=== PATIENT | male | born 1980 | race Caucasian/White ===

== ENCOUNTER 2018-02-15 08:21 | Emergency (ER) | payer BC, SELFPAY ==
[2018-02-15 08:25] VITALS: BP 134/75; PULSE 83; RESP 16; TEMP 36.1; O2SAT 97
--- NOTE | 2018-02-15 08:41 | ED.GENADUL_ITS ---
Discharge Plan Disposition Patient Disposition: HOME Condition: Stable Discharge Details Chief Complaint: Orthopedic Clinical Impression: Contusion of left knee, Effusion of left knee Primary Care Provider: Micheline Narayanan V ED Provider: Adwoa Vides Home Meds and New Rx's Prescriptions: No Action ibuprofen 200 MG capsule 200 mg PO PRN PRNRF: 0 Discharge Instructions Instructions: Contusion in Adults (ED) Additional Instructions: Rest, ice and elevate left lower extremity is much as possible. Alternate Tylenol and Motrin as needed and directed for pain. Use your crutches at home to help with ambulation of the next few days. Follow-up with orthopedics if no improvement in the next 1-2 weeks. Return immediately to the emergency department any worsening or new concerning symptoms. Stand Alone Forms: Work Release Discharge Data Discharge Date/Time-TO BE ENTERED AT DEPARTURE: 02/15/18 10:27 Discharge Physician: Adwoa Vides Medical Decision Making 37-year-old male presents with left lateral knee pain after fall directly onto ice this morning. Has not taken anything for pain. Tenderness to palpation and with varus stress left lateral knee. No ligamentous instability. Negative anterior posterior drawer test, negative Angy's test bilaterally. We will give a dose of ibuprofen and send for left knee x-ray. 1010 --x-ray notes mild suprapatellar joint effusion and lucencies through the superior pole of the patella which may represent acute fracture or unhealed prior fracture. Images were reviewed with orthopedics Dr. Haines. Unlikely this is an acute fracture. Patient is able to straight leg raise with very minimal pain anterior knee. He also has very minimal tenderness to palpation of the anterior patella which would be unlikely for an acute fracture. Recommends Brenden wrap and crutches to help with weightbearing over the next few days. Patient states he has crutches at home. Pt has seen Dr. Puente for previous R knee surgery -instructed to follow-up with Dr. Puente if pain does not improve or worsens over the next 1-2 weeks. HPI General Mode of arrival: ambulatory . Date/Time Provider Initiated Documentation: 02/15/18 08:39 . Limitations to Documentation: no limitations . Information obtained by: patient . HPI Narrative: Patient is a 37-year-old male who presents with left knee pain after slipping and falling on ice with direct blunt injury to knee this morning. Patient has not taken anything for pain. Patient denies any other injuries. Patient has been able to ambulate but with pain in the L lateral knee. Related Data Home Medications Medication Instructions Recorded Confirmed ibuprofen 200 mg PO PRN PRN 12/06/12 02/15/18 Allergies Allergy/AdvReac Type Severity Reaction Status Date / Time No Known Allergies Allergy Unverified 02/15/18 08:30 General Stated Complaint: Orthopedic MAYCOL: 4 Review of Systems Review of Systems All systems reviewed & are unremarkable except as noted in HPI and below Constitutional Reports as per HPI, Denies chills and Denies fever(s) Eyes Denies blurry vision ENT Denies dizziness, Denies sore throat and Denies throat swelling Cardiovascular Denies chest pain and Denies dyspnea Respiratory Denies dyspnea Gastrointestinal Denies abdominal pain, Denies diarrhea and Denies vomiting Genitourinary Denies hematuria and Denies dysuria Musculoskeletal Denies back pain and Denies numbness Integumentary/Breasts Denies lesions and Denies rash Neurologic Denies dizziness and Denies numbness Allergic/Immunologic Denies throat swelling PFSH S/P medial meniscus repair of right knee (Acute) Social History Smoking/Tobacco Use Status: Never alcohol intake: current alcohol intake frequency: holidays/special occasions only substance use type: does not use Surgical History S/P medial meniscus repair of right knee (Acute) Social History Smoking/Tobacco Use Status: Never alcohol intake: current alcohol intake frequency: holidays/special occasions only substance use type: does not use Exam Const General: cooperative, healthy appearing and no acute distress HENMT Head: normal to inspection Mouth: oral mucosae normal Eyes General: appearance normal, both eyes and all related structures Neck Neck: normal visual inspection Resp Effort & Inspection: normal respiratory effort and able to speak in complete sentences Cardio Rate: regular rate Skin General skin exam: no rashes or lesions noted Neuro General: alert, awake and oriented x3 Motor: muscle tone normal throughout Extrem Left lower extremity: hip/thigh Details: normal ROM; no tenderness, knee (Pain in left lateral knee with range of motion. Some pain with varus stress. No pain or laxity with valgus stress. Negative anterior and posterior drawer test. No obvious ligamentous instability/laxity. ) Details: tenderness Location : of the lateral joint line and Angy's Test Details: negative medially and laterally; no swelling, no abrasions, no lacerations, no ecchymosis and no deformity and foot Details: vascular exam Details: dorsalis pedis pulse present and posterior tibial pulse present Psych Appearance: grossly normal Affect: normal affect Course Vital Signs Temperature 97.0 F L 02/15/18 08:25 Pulse 83 02/15/18 08:25 Respiratory Rate 16 02/15/18 08:25 Blood Pressure 134/75 02/15/18 08:25 Pulse Oximetry 97 02/15/18 08:25 Temperature 97.0 F L 02/15/18 08:25 Temperature Source Skin 02/15/18 08:25 Pulse 83 02/15/18 08:25 Respiratory Rate 16 02/15/18 08:25 Respiratory Effort 02/15/18 08:25 Blood Pressure 134/75 02/15/18 08:25 Blood Pressure Position Sitting 02/15/18 08:25 Pulse Oximetry 97 02/15/18 08:25 Oxygen Delivery Method Room Air 02/15/18 08:25 Oxygen Flow Rate 0 02/15/18 08:25 Pain Level 4 02/15/18 08:25
--- NOTE | 2018-02-15 08:50 | DI.RAD_ITS ---
SYMPTOM/DIAGNOSIS: FELL, PAIN, ? FX LEFT KNEE: Four views. No definite acute fracture or dislocation is seen. There is a question of linear lucencies in the patella on the frontal view of the left knee. This may reflect an acute or old fracture or overlying artifact. Please correlate with the patient's site of pain. There does appear to be a small suprapatellar joint effusion. IMPRESSION: 1. Small joint effusion. 2. Lucency seen overlying the superior patella on the frontal view of the knee. These may be artifactual versus acute or old fracture. Follow up as clinically appropriate.
[2018-02-15] MEDS: Ibuprofen 600 MG TAB PO (09:04)
--- NOTE | 2018-02-15 09:53 | DI.VRAD_ITS ---
EXAM: XR Left Knee, 4 or more Views EXAM DATE/TIME: 02/15/2018 8:51 AM CLINICAL HISTORY: 37 years old, male; Signs and symptoms; Other: S/P fall onto lt knee , R/O acute fracture TECHNIQUE: XR Left knee 4 or more views. COMPARISON: No relevant prior studies available. FINDINGS: Bones/joints: Mild suprapatellar joint effusion. Lucencies through the superior pole of patella on the frontal views may represent acute fracture or unhealed prior fracture. Soft tissues: Normal. IMPRESSION: 1. Mild suprapatellar joint effusion. 2. Lucencies through the superior pole of patella on the frontal views may represent acute fracture or unhealed prior fracture. Dictated and Authenticated by: Sofie Nolasco MD. Ordering:ANASTASIYA HENRIQUEZ MD
== END 2018-02-15 10:27 | disposition home or self-care (01) ==
LOC: ER 10:31
PROVIDERS: Emergency Provider Physician Assistant; PCP Family Medicine
DX: S80.02XA Contusion of left knee, initial encounter (principal); M25.462 Effusion, left knee; W00.0XXA Fall on same level due to ice and snow, initial encounter
CPT/HCPCS: 99283; 73564

== ENCOUNTER 2018-04-01 20:41 | Emergency (ER) | payer BC, SELFPAY ==
[2018-04-01 20:46] VITALS: BP 153/95; PULSE 96; RESP 16; TEMP 36.3; O2SAT 96
--- NOTE | 2018-04-01 21:25 | ED.GENADUL_ITS ---
Discharge Plan Disposition Patient Disposition: HOME Condition: Stable Discharge Details Chief Complaint: Orthopedic Clinical Impression: Sprain of medial collateral ligament of right knee Primary Care Provider: Micheline Narayanan V ED Provider: Mumtaz Dewey Home Meds and New Rx's Prescriptions: Continued ibuprofen 200 MG capsule 200 mg PO PRN PRNRF: 0 Discharge Instructions Instructions: Knee Sprain (ED) Additional Instructions: Continue to ice and rest your knee as much as possible. You may perform activity as tolerated by discomfort and continue to use Brenden wrap or hinged knee brace for support. For pain control is recommended that you take 600 mg of ibuprofen along with 650 -1,000 mg of Tylenol every 6 hours as needed for discomfort. Follow-up with orthopedist for reassessment in the next couple weeks. Feel free to return the emergency department for new or worsening symptoms Stand Alone Forms: Work Release Referrals: Jim Puente [ NON-[facility] STAFF PHYSICIAN] - Medical Decision Making Patient presenting to the emergency department for chief complaint of right knee pain. Patient states that he had a slip and fall with his knee bending inward and feeling discomfort to the inside of his knee since Friday. Patient states previous injury to his right knee that required surgery. Patient has intermittently been taking aspirin for discomfort and attempting to wear his hinged knee brace but due to swelling has not been able to fully get it on. Patient denies any other injury or trauma. Physical exam does show a mildly diffuse swollen right knee without obvious effusion, medial ligament laxity and pain with stress and painful extension of the knee mainly on the medial side. Patient can walk more than 4 steps and fully weight-bear, but does state some feeling that knee is going to give out . He has no bony tenderness. Given this I do feel that patient has high risk of medial ligament sprain but I doubt any fracture or dislocation. Given this I do not feel that plain film imaging is required at this time but more supportive care and orthopedist follow-up. Given the patient states some difficulty with using his hinged knee brace due to swelling patient was given an Brenden wrap and informed to use ibuprofen and Tylenol to help with swelling along with ice and rest over the next 2-3 days and to advance activity as tolerated with a follow-up to his orthopedist in [place] in the next couple weeks for reassessment. After discussion of diagnosis and plan of care patient has no further needs, questions, or concerns and states clear understanding to return to the emergency department for any worsening symptoms. HPI General Mode of arrival: ambulatory . Date/Time Provider Initiated Documentation: 04/01/18 20:47 . Limitations to Documentation: no limitations . Information obtained by: patient and RN notes reviewed . History of Present Illness 37 year old M presents to the emergency department with the chief complaint of right knee pain, described as moderate and similar to prior episodes, with intensity rated at 5. Quality is described as aching, Movement worsens symptoms . Patient notes no other symptoms.. Related Data Home Medications Medication Instructions Recorded Confirmed ibuprofen 200 mg PO PRN PRN 12/06/12 04/01/18 Allergies Allergy/AdvReac Type Severity Reaction Status Date / Time No Known Allergies Allergy Unverified 04/01/18 20:50 General Stated Complaint: Orthopedic MAYCOL: 4 Review of Systems Constitutional Denies chills and Denies fever(s) Cardiovascular Denies syncope and Denies dyspnea Respiratory Denies cough and Denies dyspnea Musculoskeletal Reports as per HPI, Denies numbness and Denies tingling Integumentary/Breasts Denies rash, Denies sores and Denies wounds Neurologic Denies syncope, Denies numbness and Denies tingling PFSH Surgical History S/P medial meniscus repair of right knee (Acute) Social History Smoking/Tobacco Use Status: Never alcohol intake: current alcohol intake frequency: holidays/special occasions only substance use type: does not use Exam Const General: cooperative and no acute distress Nutritional Appearance: overweight Orientation: alert, awake and oriented x3 Resp Effort & Inspection: normal respiratory effort and able to speak in complete sentences Cardio Rate: regular rate Rhythm: regular rhythm Extrem Right lower extremity: hip/thigh Details: normal to inspection; no tenderness, knee Details: tenderness Location: of the medial joint line, swelling, abnormal ROM Details: pain with active ROM during Details: in extension; able to extend lower leg actively and knee ligament exam abnormal Details: anterior drawer test normal Details: pain noted, valgus stress test normal Details: both pain and laxity noted and varus stress test normal Details: pain noted; no pain with axial loading; no ecchymosis, no crepitus and no deformity and lower leg Details: normal to inspection; no tenderness and no unusual warmth Course Vital Signs Temperature 36.3 C L 04/01/18 20:46 Pulse 96 H 04/01/18 20:46 Respiratory Rate 16 04/01/18 20:46 Blood Pressure 153/95 H 04/01/18 20:46 Pulse Oximetry 96 04/01/18 20:46 Temperature 36.3 C L 04/01/18 20:46 Temperature Source Temporal Artery Scan 04/01/18 20:46 Pulse 96 H 04/01/18 20:46 Respiratory Rate 16 04/01/18 20:46 Respiratory Effort 04/01/18 20:46 Blood Pressure 153/95 H 04/01/18 20:46 Pulse Oximetry 96 04/01/18 20:46 Pain Level 6 04/01/18 20:49
== END 2018-04-01 21:39 | disposition home or self-care (01) ==
PROVIDERS: Emergency Provider Nurse Practitioner Family; PCP Family Medicine
DX: S83.411A Sprain of medial collateral ligament of right knee, initial encounter (principal); W01.0XXA Fall on same level from slipping, tripping and stumbling without subsequent striking against object, initial encounter
CPT/HCPCS: 99282

== ENCOUNTER 2019-09-20 11:41 | Outpatient (CLI) | payer BC, SELFPAY ==
--- NOTE | 2019-09-20 12:05 | DI.RAD_ITS ---
EXAM: XR SHOULDER RT COMPLETE 2+V INDICATION: RT SHOULDER PAIN, M25.511. COMPARISON: No exams were available for comparison TECHNIQUE: 2D digital imaging was performed. FINDINGS: There is mild spurring at the AC joint and glenoid. There is mild spurring at the greater tuberosit y. Humeral head is normally positioned. IMPRESSION: Mild degenerative changes. DATA REPOSITORY: RADIATION DOSE DELIVERED:
== END 2019-09-20 12:01 ==
PROVIDERS: PCP Family Medicine; Visit Provider Physician Assistant Medical
DX: M25.511 Pain in right shoulder (principal); M19.011 Primary osteoarthritis, right shoulder
CPT/HCPCS: 73030

== ENCOUNTER 2019-10-01 14:44 | Outpatient (REF) | payer BC, SELFPAY ==
--- NOTE | 2019-10-01 14:30 | SKI_PTH ---
PATIENT: Malcom Chang LOC: [facility] U#:[id number] AGE/SX: 39/M ROOM: RE10/01/[address]: Micaela Keith : 1980 BED: DIS: 10/01/2019 SPEC #: [id number] RECD: 10/01/19 17:02 STATUS: ALEX REJuancarlos #: [id number] MARK: 10/01/19 14:[address]: Micaela Keith DEPT: Surgical Specimen RECD BY: Sadie Flores ENTERED: 10/01/19 17:03 SP TYPE: GINO GREER DR: Micheline Narayanan V Tissues: 1 - SKIN BIOPSY(SHAVE/PUNCH) Procedures: SKIN LEVEL 4 Comments: [id number]
== END 2019-10-01 15:04 ==
LOC: LBN 14:44
PROVIDERS: PCP Family Medicine; Visit Provider Surgery
DX: D23.61 Other benign neoplasm of skin of right upper limb, including shoulder (principal)
CPT/HCPCS: 88305

== ENCOUNTER 2019-12-28 01:25 | Outpatient (CLI) | payer BC, SELFPAY ==
[2019-12-28 08:44] LABS: Hemoglobin A1C 5.2 % (<5.7)
[2019-12-28 09:10] LABS: Anion Gap 9.5 mmol/L (3-11); BUN 22 mg/dL (7-18); CO2 25.5 mmol/L (21.0-32.0); Calcium 8.7 mg/dL (8.5-10.1); Calculated LDL 141 mg/dL (<100); Chloride 106 mmol/L (98-107); Cholesterol 188 mg/dL (<200); Glucose 103 mg/dL (74-106); HDL Cholesterol 30 mg/dL (40-60); Potassium 4.4 mmol/L (3.5-5.1); Sodium 141 mmol/L (136-145); Triglyceride 88 mg/dL (<150)
== END 2019-12-28 01:45 ==
PROVIDERS: PCP Family Medicine; Visit Provider Physician Assistant Medical
DX: Z00.00 Encounter for general adult medical examination without abnormal findings (principal); Z13.220 Encounter for screening for lipoid disorders; Z13.228 Encounter for screening for other metabolic disorders; Z13.1 Encounter for screening for diabetes mellitus
CPT/HCPCS: 36415; 80048; 80061; 83036

== ENCOUNTER 2020-01-07 03:23 | Outpatient (CLI) | payer BC, SELFPAY ==
--- NOTE | 2020-01-07 16:15 | DI.MRI_ITS ---
EXAM: MR LOWER JOINT LT WO CLINICAL HISTORY: LT KNEE PAIN,? MENISCUS TEAR,INSTABILITY/CATCHING,+MCMURRAYS,[id number] TECHNIQUE: Multiplanar multisequence MRI was performed.. COMPARISON: No exams were available for comparison FINDINGS: MR examination of the knee was performed according to the usual protocol. The examination is technica lly limited due to the patient's body habitus and due to motion artifact. There is no significant knee joint effusion. No significant bony signal abnormality seen. Medial tibiofemoral joint: The articular cartilage of the femur and tibia appears well maintained. T he medial meniscus appears deficient and there is tear which is essentially nondisplaced of the midbo dy and posterior horn of the medial meniscus.. The medial collateral ligament appears intact. No po steromedial corner injury seen. Lateral tibiofemoral joint: The articular cartilage of the femur and tibia peers well maintained. Th e lateral meniscus shows markedly abnormal signal and a mid body tear extending into anterior and pos terior horns period no gross displacement.. The lateral collateral ligament complex and posterolater al corner structures appear intact. Patellofemoral joint and extensor mechanism: There is slight lateral patellar subluxation. The artic ular cartilage of the patellofemoral joint appears intact. The superior and inferior patellar fat pa ds appear normal with no signal abnormality. The quadriceps tendon and patellar tendon appear intact with no evidence of a tear or significant saloni ma. The medial and lateral retinacula appear intact. Cruciate ligaments: Cruciate ligaments and attachments appear normal with no evidence of a tear. Tibiofibular joint: No specific abnormality involving the tibiofibular joint. . IMPRESSION: Medial and lateral meniscal tears as described above. Slight lateral patellar subluxation. DATA REPOSITORY:
== END 2020-01-07 03:43 ==
PROVIDERS: PCP Family Medicine; Visit Provider Specialist
DX: S83.242A Other tear of medial meniscus, current injury, left knee, initial encounter (principal); S83.282A Other tear of lateral meniscus, current injury, left knee, initial encounter
CPT/HCPCS: 73721

== ENCOUNTER 2020-05-05 02:37 | Outpatient (CLI) | payer BC, SELFPAY ==
[2020-05-05 08:57] LABS: TSH (W/Ref FT4) 1.02 uIU/mL (0.36-3.74)
[2020-05-09 15:41] LABS: Testosterone, Total 250 ng/dL (240-950)
== END 2020-05-05 02:38 | disposition home or self-care (01) ==
LOC: LBO 02:37
PROVIDERS: PCP Family Medicine; Visit Provider Physician Assistant Medical
DX: F52.21 Male erectile disorder (principal)
CPT/HCPCS: 36415; 84402; 84403; 84443

== ENCOUNTER 2020-11-26 20:29 | Emergency (ER) | payer BC, SELFPAY ==
[2020-11-26] VITALS (8 sets, daily range): BP systolic 126–146; BP diastolic 68–93; PULSE 71–92; RESP 18; TEMP 36.5; O2SAT 94–98
--- NOTE | 2020-11-26 21:00 | DI.CT_ITS ---
Exam(s) CT ABDOMEN PELVIS W EXAM: CT ABDOMEN PELVIS W CLINICAL HISTORY: left flank pain. TECHNIQUE: Imaging Protocol: Axial computed tomography images with coronal and sagittal reformatted images were created and reviewed CONTRAST MATERIAL: Intravenous: Omnipaque 350 Contrast volume:100 ml Oral: no COMPARISON: No exams were available for comparison FINDINGS: ABDOMEN: Lung Bases: Normal where visualized. Liver: Fatty infiltration. No measurable mass. Gallbladder and biliary tract: Gallbladder contracted. No radiodense calculus or dilation. Pancreas: Normal density, no abnormal calcifications or inflammatory process. Spleen: Normal. Kidneys: Normal size, contour and axis. Tiny not non-obstructing stone upper pole right kidney. No obstructive uropathy. Small bilateral renal cysts. No masses seen. Adrenal glands: No masses seen. Abdominal Aorta: Abdominal portion non-dilated. PELVIS: Bladder: No gross wall thickening. No calculi.No focal mass. Bowel: No obstruction or bowel wall thickening. There are a few scattered diverticula. Appendix nor mal. Peritoneal cavity: No ascites, collection or mesenteric inflammatory response. Bones: Degenerative disc changes and scoliosis. Reproductive organs: Within normal limits. Lymph nodes: Unremarkable. Impression: tiny nonobstructing stone upper pole right kidney. No evidence of hydronephrosis.. RADIATION DOSE DELIVERED: 1,753.15mGy.cm Total DLP DATA REPOSITORY: All CT scans at this facility are submitted to the National Radiology Data Registry (NRDR) Dose Index Registry (DIR) with the [employer] (A[employer]). RADIATION OPTIMIZATION: All CT scans at this facility use at least one of these dose optimization te chniques: automated exposure control; mA and/or kV adjustment per patient size (includes targeted exa ms where dose is matched to clinical indication); or iterative reconstruction.
[2020-11-26 21:20] LABS: Bilirubin Negative (Negative); Blood Negative (Negative); Clarity Clear (Clear); Glucose Negative (Negative); Ketones Negative (Negative); Leukocyte Esterase Negative (Negative); Nitrite Negative (Negative); Specific Gravity 1.025 (1.005-1.025)
[2020-11-26 21:46] LABS: Abs Immature Grans 0.04 10^3/uL (0.0-0.06); Absolute Basophil Count 0.06 10^3/uL (0.0-0.2); Absolute Lymphocyte Count 3.43 10^3/uL (1.2-3.4); Absolute Monocyte Count 0.78 10^3/uL (0.1-0.8); Basophils % 0.5; Eosinophils % 2.7; HCT 44.2 % (40.0-50.0); HGB 15.2 g/dL (13.5-17.5); Immature Grans % 0.4; Lymphocytes % 30.3; MCH 30.3 pg (27.0-33.0); MCHC 34.4 % (32.0-36.0); MCV 88.2 fL (80-95); MPV 10.3 fL (8.0-11.0); Monocytes % 6.9; Neutrophils % 59.2; Nucleated RBC 0 %; Platelet Count 273 10^3/uL (130-400); RBC 5.01 10^6/uL (4.36-5.78); RDW 13.5 % (11.8-14.1); RDW-SD 43.6 fL; WBC 11.32 10^3/uL (4.4-10.8)
[2020-11-26 21:47] LABS: Absolute Eosinophil Count 0.31 10^3/uL (0.0-0.7)
[2020-11-26] MEDS: Orphenadrine 60 MG/2 ML VIAL IVP (21:51)
[2020-11-26 22:00] LABS: ALT 28 U/L (16-63); AST 13 U/L (15-37); Albumin 3.6 g/dL (3.4-5.0); Alkaline Phosphatase 100 U/L (46-116); Anion Gap 9.1 mmol/L (3-11); BUN 16 mg/dL (7-18); Bilirubin, Total 0.4 mg/dL (0.2-1.0); CO2 26.9 mmol/L (21.0-32.0); CREATININE 1.4 mg/dL (0.70-1.30); Calcium 8.7 mg/dL (8.5-10.1); Chloride 106 mmol/L (98-107); Estimated GFR 55.58 (mL/min/1.73m2); Glucose 118 mg/dL (74-106); Lipase 127 U/L (73-393); Potassium 3.9 mmol/L (3.5-5.1); Sodium 142 mmol/L (136-145); Total Protein 7.3 g/dL (6.4-8.2)
--- NOTE | 2020-11-26 22:01 | ED.GENADUL_ITS ---
Discharge Plan Disposition Patient Disposition: HOME Condition: Good Discharge Details Clinical Impression: Back pain Primary Care Provider: Micheline Narayanan V ED Provider: Sadie Lucero Home Meds and New Rx's Prescriptions: New cyclobenzaprine 10 mg tablet 10 mg PO TID Qty: 10 RF: 0 No Action loratadine [Claritin] 10 mg tablet 10 mg PO DAILY RF: 0 multivitamin [Daily Multi-Vitamin] Tablet 1 tab PO DAILY RF: 0 pantoprazole [Protonix] 40 mg tablet,delayed release (DR/EC) 40 mg PO DAILY RF: 0 ibuprofen 800 mg tablet 800 mg PO TID RF: 0 sildenafil (pulm.hypertension) 20 mg tablet 20 mg PO DAILY PRNRF: 0 fluticasone propionate 50 mcg/actuation spray,suspension 2 spray JOHNSON DAILY PRNRF: 0 Discharge Instructions Instructions: Back Pain (ED) Additional Instructions: Please follow-up with your primary care physician Ibuprofen and Tylenol for pain control Stretching exercises recommended Please return with worsening pain, fever, chills, circulation changes, or with any new or worsening complaints Follow up with your primary care physician in 2 to 3 days for reevaluation Referrals: Micheline Narayanan MD [Primary Care Provider] - Discharge Data Discharge Date/Time-TO BE ENTERED AT DEPARTURE: 11/27/20 00:22 Medical Decision Making <SANDIP Greer - Last Filed: 11/29/20 10:36> Care was transitioned to Dr. Li pending CT result of abdomen and pelvis at 12:00. patient is resting comfortably in room, his pain is predominantly on the left side, patient was pending CT results and unfortunately he was made aware regarding significant delay in virtual radiology interpretation time I do not see any significant acute abnormality on CAT scan of abdomen and pelvis, patient written for discharge home with musculoskeletal medications and need for outpatient follow-up <Pavan Li DO - Last Filed: 11/27/20 00:15> 12:13 AM Patient was signed out to me pending CT results. CT results have returned, and per virtual radiologist there is no evidence of acute kidney stone, he does have mild splenomegaly, there is some mild prominence of the rectum, there are also portions of the appendix measuring 7.8 mm. I did go and reassessed the patient, and he has no right lower quadrant pain whatsoever, no pain at all in the lower or right side of his abdomen. Denies any rectal pain. Signs and symptoms are clinically inconsistent with acute appendicitis or proctitis. Symptoms at this time appear musculoskeletal in nature. Patient feels well and feels comfortable going home. We will continue with the plan set forth by Sadie at time of signout. I have extensively reviewed the treatment plan and discharge instructions with the patient and their family. I have addressed all patient concerns at this time. The patient and family was made aware of what symptoms to monitor for that would warrant a return to the emergency department. Discussed the plan with the patient and family, they demonstrate verbal understanding and agreement with our assessment and plan at this time. The documentation in this chart was dictated using [employer] dictation software. Please excuse any dictation errors. Chief IMPRESSION: 1. No renal or ureteral calculi seen. The internal contents of the urinary bladder measure greater than water density. This may be artifactual. Components of blood or infection are not excluded. 2. Splenomegaly. 3. Some wall prominence to the rectum which should be correlated with any concern for proctitis. 4. Portions of the appendix are measuring mildly dilated, 7.8 mm. This is favored to represent normal variation as no significant periappendiceal infiltrative changes are seen. However correlation with any concern for early appendicitis is recommended. If indicated, short-term follow up imaging could be obtained. Other findings/details as above. Thank you for allowing us to participate in the care of your patient. Dictated and Authenticated by: Mirta Bryant MD 11/27/2020 12:04 AM Eastern Time ([place] & [place]) HPI <SANDIP Greer - Last Filed: 11/29/20 10:36> General Mode of arrival: ambulatory . Date/Time Provider Initiated Documentation: 11/26/20 20:42 . Limitations to Documentation: no limitations . Information obtained by: patient . HPI Narrative: This 40-year-old male presents with left flank pain persistent intermittently since Friday. Denies prior history of similar symptoms in the past. States the pain is acutely exacerbated with movement but also the onset at rest. He states that with urination the pain increases. 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 He denies any fever chills. He denies hematuria. Denies history of ureterolithiasis. She has not taken any [id number] medications. He denies any nausea or vomiting. He describes the pain as sharp. Related Data Home Medications Medication Instructions Recorded Confirmed loratadine 10 mg tablet 10 mg PO DAILY 09/30/19 11/27/20 multivitamin 1 tab PO DAILY 09/30/19 11/27/20 pantoprazole 40 mg tablet,delayed 40 mg PO DAILY 09/30/19 11/27/20 release ibuprofen 800 mg tablet 800 mg PO TID 10/04/19 11/27/20 sildenafil (pulm.hypertension) 20 20 mg PO DAILY PRN tab 06/05/20 11/27/20 mg tablet fluticasone propionate 50 2 spray JOHNSON DAILY PRN 08/24/20 11/27/20 mcg/actuation nasal spray,suspension cyclobenzaprine 10 mg PO TID #10 tab 11/26/20 Previous Rx's Medication Instructions Recorded cyclobenzaprine 10 mg PO TID #10 tab 11/26/20 Allergies Allergy/AdvReac Type Severity Reaction Status Date / Time No Known Allergies Allergy Unverified 11/26/20 20:45 General Stated Complaint: FlankPain MAYCOL: 3 Review of Systems <SANDIP Greer - Last Filed: 11/29/20 10:36> All systems reviewed & are unremarkable except as noted in HPI and below PFSH <SANDIP Greer - Last Filed: 11/29/20 10:36> Medical History Allergic rhinitis Erectile dysfunction Pgdm-Hummj-Ncykkls disease Major depression, chronic JEFF (obstructive sleep apnea) Premature ejaculation Right carpal tunnel syndrome Right shoulder pain Skin lesion Snoring Surgical History S/P medial meniscus repair of right knee Social History Smoking/Tobacco Use Status: Never Smoking risk assessment performed?: Yes Alcohol Intake: current Alcohol Intake frequency: holidays/special occasions only Drug use: Never Substance use type: does not use Do you feel safe at home: Yes Do you feel safe in your relationship?: Yes Exam <SANDIP Greer - Last Filed: 11/29/20 10:36> Const General: cooperative, comfortable and no acute distress [facility] Head: normal to inspection Mouth: oral mucosae normal Eyes Pupils: PERRL Chest Chest: normal inspection of the chest Resp Effort & Inspection: normal respiratory effort Auscultation: clear to auscultation bilaterally Cardio Rate: regular rate GI Other: Left CVA tenderness, no paraspinal tenderness, no midline tenderness Back/Spine/Pelvis Other: No paraspinal tenderness, no midline tenderness Skin General skin exam: no rashes or lesions noted Neuro General: patient alert and patient oriented x3 Extrem Other: Distal pulses intact Course <SANDIP Greer - Last Filed: 11/29/20 10:36> Vital Signs Vital signs: Vital Signs Temperature 36.5 C 11/26/20 20:43 Pulse 92 H 11/26/20 20:43 Respiratory Rate 18 11/26/20 20:43 Blood Pressure 146/93 H 11/26/20 20:43 Pulse Oximetry 97 11/26/20 20:43 Temperature 36.5 C 11/26/20 20:43 Pulse 92 H 11/26/20 20:43 Respiratory Rate 18 11/26/20 20:43 Respiratory Effort Non-Labored 11/26/20 20:47 Blood Pressure 146/93 H 11/26/20 20:43 Pulse Oximetry 97 11/26/20 20:43 Pain Level 10 11/26/20 20:47 Lab/Test Results Lab/Test Results: Laboratory Tests Range/Units 11/26/20 11/26/20 11/26/20 21:00 21:40 21:40 WBC (4.4-10.8) 10^3/uL 11.32 H RBC (4.36-5.78) 10^6/uL 5.01 Hgb (13.5-17.5) g/dL 15.2 Hct (40.0-50.0) % 44.2 MCV (80-95) fL 88.2 MCH (27.0-33.0) pg 30.3 MCHC (32.0-36.0) % 34.4 RDW (11.8-14.1) % 13.5 Plt Count (130-400) 10^3/uL 273 MPV (8.0-11.0) fL 10.3 Immature Gran % 0.4 Neutrophils % 59.2 Lymphocytes % 30.3 Monocytes % 6.9 Eosinophils % 2.7 Basophils % 0.5 Nucleated RBC % % 0 Absolute Neutrophils (1.2-6.7) 10^3/uL 6.70 Absolute Lymphocytes (1.2-3.4) 10^3/uL 3.43 H Absolute Monocytes (0.1-0.8) 10^3/uL 0.78 Absolute Eosinophils (0.0-0.7) 10^3/uL 0.31 Absolute Basophils (0.0-0.2) 10^3/uL 0.06 Sodium (136-145) mmol/L 142 Potassium (3.5-5.1) mmol/L 3.9 Chloride (98-107) mmol/L 106 Carbon Dioxide (21.0-32.0) mmol/L 26.9 Anion Gap (3-11) mmol/L 9.1 BUN (7-18) mg/dL 16 Creatinine (0.70-1.30) mg/dL 1.4 H Estimated GFR/1.73 m2 (mL/min/1.73m2) 55.58 Glucose (74-106) mg/dL 118 H Calcium (8.5-10.1) mg/dL 8.7 Total Bilirubin (0.2-1.0) mg/dL 0.4 AST (15-37) U/L 13 L ALT (16-63) U/L 28 Alkaline Phosphatase (46-116) U/L 100 Total Protein (6.4-8.2) g/dL 7.3 Albumin (3.4-5.0) g/dL 3.6 Lipase (73-393) U/L 127 Urine Color (Yellow) Yellow Urine Clarity (Clear) Clear Urine pH (5-8) 7.0 Ur Specific [place] (1.005-1.025) 1.025 Urine Protein (Negative) mg/dL Negative Urine Ketones (Negative) mg/dL Negative Urine Blood (Negative) Negative Urine Nitrite (Negative) Negative Urine Bilirubin (Negative) Negative Urine Urobilinogen (Up TO 0.2) EU/dL 4.0 H Ur Leukocyte Esterase (Negative) Negative Urine Glucose (Negative) mg/dL Negative
[2020-11-26] MEDS: ACETAMINOPHEN 1,000 MG/100 ML BTL 400 MG IVPB (22:30)
[2020-11-27] VITALS: BP 144/73; PULSE 73; O2SAT 97
[2020-11-27 00:01] VITALS: O2SAT 95
--- NOTE | 2020-11-27 00:04 | DI.VRAD_ITS ---
PROCEDURE INFORMATION: Exam: CT Abdomen And Pelvis With Contrast Exam date and time: 11/26/2020 9:10 PM Age: 40 years old Clinical indication: Other: L flank pain; Patient HX: Left flank pain TECHNIQUE: Imaging protocol: Computed tomography of the abdomen and pelvis with contrast. Radiation optimization: All CT scans at this facility use at least one of these dose optimization techniques: automated exposure control; mA and/or kV adjustment per patient size (includes targeted exams where dose is matched to clinical indication); or iterative reconstruction. Contrast material: OMNIPAQUE 350; Contrast volume: 100 ml; Contrast route: INTRAVENOUS (IV); COMPARISON: None available. FINDINGS: Liver: Homogeneous liver. Gallbladder and bile ducts: The gallbladder is contracted in appearance and not well assessed. No calcified gallstones identified. Pancreas: Normal pancreas. Spleen: Splenomegaly with the spleen measuring 16.1 cm. Adrenal glands: Normal adrenal glands. Kidneys and ureters: Cystic structures within each kidney. No hydronephrosis. No renal or ureteral calculi seen. Stomach and bowel: Heterogeneous contents to the stomach, favored to be related to ingested products. No evidence of bowel obstruction. Scattered colonic diverticula are seen. There is some wall prominence to the rectum which should be correlated with any concern for proctitis. Appendix: Portions of the appendix are measuring mildly dilated, 7.8 mm (normal is 6 mm or less). This is favored to represent normal variation as no significant periappendiceal infiltrative changes are seen. However, correlation is recommended. If indicated, short-term follow up imaging could be obtained. Intraperitoneal space: No free air. Vasculature: No abdominal aortic aneurysm. Lymph nodes: No pathologic lymph node enlargement. Urinary bladder: The internal contents of the urinary bladder measure greater than water density. This may be artifactual. Components of blood or infection are not excluded. Reproductive: Unremarkable as visualized. Bones/joints: Skeletal degenerative changes. Scoliosis. Soft tissues: Tiny fat containing umbilical hernia. IMPRESSION: 1. No renal or ureteral calculi seen. The internal contents of the urinary bladder measure greater than water density. This may be artifactual. Components of blood or infection are not excluded. 2. Splenomegaly. 3. Some wall prominence to the rectum which should be correlated with any concern for proctitis. 4. Portions of the appendix are measuring mildly dilated, 7.8 mm. This is favored to represent normal variation as no significant periappendiceal infiltrative changes are seen. However correlation with any concern for early appendicitis is recommended. If indicated, short-term follow up imaging could be obtained. Other findings/details as above. Dictated and Authenticated by: Mirta Bryant MD. Ordering:NAOMI Noel MD
[2020-11-27 00:10] VITALS: O2SAT 97
== END 2020-11-27 00:22 | disposition home or self-care (01) ==
PROVIDERS: Emergency Provider Physician Assistant; PCP Family Medicine
DX: M54.9 Dorsalgia, unspecified (principal)
CPT/HCPCS: 36415; 80053; 83690; 96374; 96375; 99285; J2360; 74177; 81003; 85025; 99284; J0131

== ENCOUNTER 2021-07-24 08:37 | Outpatient (REF) | payer BC, SELFPAY ==
[2021-07-24 19:47] LABS: Hemoglobin A1C 5.4 % (<5.7)
[2021-07-24 20:19] LABS: Anion Gap 9.9 mmol/L (3-11); BUN 12 mg/dL (7-18); CO2 24.1 mmol/L (21.0-32.0); CREATININE 1.1 mg/dL (0.70-1.30); Calcium 8.3 mg/dL (8.5-10.1); Calculated LDL 134 mg/dL (<100); Chloride 106 mmol/L (98-107); Cholesterol 182 mg/dL (<200); Glucose 100 mg/dL (74-106); HDL Cholesterol 32 mg/dL (40-60); Potassium 4.4 mmol/L (3.5-5.1); Sodium 140 mmol/L (136-145); Triglyceride 81 mg/dL (<150)
[2021-07-28 14:13] LABS: Testosterone, Free 9.08 ng/dL (4.46-17.1); Testosterone, Total 313 ng/dL (240-950)
== END 2021-07-24 08:38 | disposition home or self-care (01) ==
LOC: NCHCN 08:37
PROVIDERS: PCP Family Medicine; Visit Provider Physician Assistant Medical
DX: Z13.1 Encounter for screening for diabetes mellitus (principal); R35.0 Frequency of micturition; Z13.228 Encounter for screening for other metabolic disorders; Z13.220 Encounter for screening for lipoid disorders
CPT/HCPCS: 80048; 80061; 84402; 84403; 83036

== ENCOUNTER 2021-10-04 17:31 | Emergency (ER) | payer BC, SELFPAY ==
[2021-10-04 17:33] VITALS: BP 148/94; PULSE 96; RESP 16; TEMP 36.8; O2SAT 97
[2021-10-04 18:16] LABS: Abs Immature Grans 0.04 10^3/uL (0.0-0.06); Absolute Basophil Count 0.04 10^3/uL (0.0-0.2); Absolute Eosinophil Count 0.21 10^3/uL (0.0-0.7); Absolute Lymphocyte Count 2.48 10^3/uL (1.2-3.4); Absolute Monocyte Count 0.54 10^3/uL (0.1-0.8); Basophils % 0.4; Eosinophils % 1.9; HCT 44.5 % (40.0-50.0); HGB 15.3 g/dL (13.5-17.5); Immature Grans % 0.4; Lymphocytes % 22.4; MCH 29.9 pg (27.0-33.0); MCHC 34.4 % (32.0-36.0); MCV 87 fL (80-95); MPV 10.1 fL (8.0-11.0); Monocytes % 4.9; Platelet Count 244 10^3/uL (130-400); RBC 5.12 10^6/uL (4.36-5.78); RDW 13.2 % (11.8-14.1); RDW-SD 41.7 fL; WBC 11.09 10^3/uL (4.4-10.8)
[2021-10-04 18:17] LABS: Absolute Neutrophil Count 7.76 10^3/uL (1.2-6.7)
[2021-10-04 18:36] LABS: ALT 33 U/L (16-63); AST 19 U/L (15-37); Albumin 3.7 g/dL (3.4-5.0); Alkaline Phosphatase 96 U/L (46-116); Anion Gap 7.9 mmol/L (3-11); BUN 17 mg/dL (7-18); Bilirubin, Total 0.9 mg/dL (0.2-1.0); CO2 25.1 mmol/L (21.0-32.0); CREATININE 1.2 mg/dL (0.70-1.30); Calcium 8.7 mg/dL (8.5-10.1); Chloride 105 mmol/L (98-107); Glucose 108 mg/dL (74-106); Lipase 84 U/L (73-393); Potassium 3.3 mmol/L (3.5-5.1); Sodium 138 mmol/L (136-145); Total Protein 7.3 g/dL (6.4-8.2)
[2021-10-04] MEDS: MORPHine 4 MG/ML SYR IVP ×2 (18:49→20:00)
[2021-10-04 19:56] VITALS: BP 140/89; PULSE 85; TEMP 36.2; O2SAT 97
[2021-10-04 21:09] VITALS: BP 138/90; TEMP 36.3; O2SAT 96
[2021-10-04] MEDS: Ketorolac 15 MG/ML VIAL IVP (21:12)
[2021-10-04] MEDS: Ciprofloxacin 500 MG TAB PO (21:14)
[2021-10-04] MEDS: metroNIDAZOLE 500 MG TAB PO (21:14)
--- NOTE | 2021-10-04 21:18 | ED.GENADUL_ITS ---
Discharge Plan Disposition Patient Disposition: HOME Condition: Stable Discharge Details Clinical Impression: Biliary colic Primary Care Provider: Christopher Han ED Provider: Sadie Lucero Home Meds and New Rx's Prescriptions: New metoclopramide HCl [Reglan] 10 mg tablet 10 mg PO Q6H PRNQty: 10 0RF ciprofloxacin HCl 500 mg tablet 500 mg PO BID Qty: 20 0RF metronidazole 500 mg tablet 500 mg PO TID Qty: 30 0RF oxycodone 5 mg capsule 5 mg PO Q8H PRNQty: 10 0RF Continued loratadine [Claritin] 10 mg tablet 10 mg PO DAILY multivitamin [Daily Multi-Vitamin] Tablet 1 tab PO DAILY pantoprazole [Protonix] 40 mg tablet,delayed release (DR/EC) 40 mg PO DAILY ibuprofen 800 mg tablet 800 mg PO TID sildenafil (pulm.hypertension) 20 mg tablet 20 mg PO DAILY PRN Rx Instructions: administer doses at least 4-6 hours apart fluticasone propionate 50 mcg/actuation spray,suspension 2 spray JOHNSON DAILY PRN Rx Instructions: administer into each nostril cyclobenzaprine 10 mg tablet 10 mg PO TID Qty: 10 0RF Discharge Instructions Instructions: Biliary Colic (ED), Low Fat Diet (ED) Additional Instructions: please refer to enclosed packet information regarding diet changes Take the antibiotic, Cipro and Flagyl as prescribed Follow-up with your PCP tomorrow Report for ultrasound tomorrow with scheduling surgical appointment Take your probiotic as instructed Take the Reglan as needed for nausea and vomiting Stay away from any fatty foods with fever, worsening pain, please return for reassessment Stand Alone Forms: Work Release Referrals: Christopher Han PA [Primary Care Provider] - 1 day Medical Decision Making Patient is in no acute distress His vitals are stable He has mild leukocytosis at 11,[address] abdomen and pelvis from his [facility] visit on Friday His pain is now persistent but not worsen and I see no clear indication for repeat CT imaging at this time I do feel ultrasound would be beneficial however ultrasounds are available across in the evening so was ordered outpatient Surgeon, Dr. Gong to recommend antibiotics and pain control With persistent pain, we discussed admission, however patient unfortunately is not a surgical candidate at this facility and will likely need tertiary care facility secondary to BMI He is aware of this I did call [facility] and [facility], Not currently able to accept this patient at this time I therefore placed patient on care management follow-up list to establish with surgery at [facility] and also PCP recheck as patient will need close outpatient surgical assessment He is placed on Cipro, Flagyl, and oxycodone He is also given prescription for Reglan should he need it Cessation of fatty foods was reviewed and diet changes reviewed in detail Patient discharged home in stable condition with stable vitals Return precautions discussed and patient expressed Medical Records Medical records reviewed: Yes I reviewed the patient's medical records. Lab Data Lab results reviewed: Yes I reviewed the patient's lab results. HPI General Date/Time Provider Initiated Documentation: 10/04/21 17:53 . HPI Narrative: 41-year-old gentleman with a history of morbid obesity, obstructive sleep apnea presents with report of persistent right upper quadrant pain. Patient states he was evaluated on Friday of this week at [facility] and had a CT scan that showed evidence of biliary calcifications. He presents today secondary to persistent pain. Patient states he had CHF last evening with worsening of his pain this morning. He states the pain has been persistent all day which was new for him. He has had the pain intermittently for the past 3 weeks reportedly. He was told to follow-up with surgeon at [facility] but this is yet to be established. He denies any chest pain or shortness of breath. He denies any fever or chills. He reports persistent right upper quadrant pain that is sharp. He states it is worse with pressure and eating fatty foods. He denies any current nausea or vomiting. He denies any urinary symptoms. Denies prior abdominal surgeries. Related Data Home Medications Medication Instructions Recorded Confirmed loratadine 10 mg tablet (Claritin) 10 mg PO DAILY 09/30/19 11/27/20 multivitamin (Daily Multi-Vitamin 1 tab PO DAILY 09/30/19 11/27/20 tablet) pantoprazole 40 mg tablet,delayed 40 mg PO DAILY 09/30/19 11/27/20 release (Protonix) ibuprofen 800 mg tablet 800 mg PO TID 10/04/19 10/04/21 sildenafil (pulm.hypertension) 20 20 mg PO DAILY PRN 06/05/20 11/27/20 mg tablet fluticasone propionate 50 2 spray intranasal DAILY PRN 08/24/20 11/27/20 mcg/actuation nasal spray,suspension cyclobenzaprine 10 mg tablet 10 mg PO TID #10 tabs 11/26/20 ciprofloxacin HCl 500 mg tablet 500 mg PO BID #20 tabs 10/04/21 metoclopramide HCl 10 mg tablet 10 mg PO Q6H PRN #10 tabs 10/04/21 (Reglan) metronidazole 500 mg tablet 500 mg PO TID #30 tabs 10/04/21 oxycodone 5 mg capsule 5 mg PO Q8H PRN #10 caps 10/04/21 Previous Rx's Medication Instructions Recorded cyclobenzaprine 10 mg tablet 10 mg PO TID #10 tabs 11/26/20 ciprofloxacin HCl 500 mg tablet 500 mg PO BID #20 tabs 10/04/21 metoclopramide HCl 10 mg tablet 10 mg PO Q6H PRN #10 tabs 10/04/21 (Reglan) metronidazole 500 mg tablet 500 mg PO TID #30 tabs 10/04/21 oxycodone 5 mg capsule 5 mg PO Q8H PRN #10 caps 10/04/21 Allergies Allergy/AdvReac Type Severity Reaction Status Date / Time No Known Allergies Allergy Unverified 10/04/21 17:37 General Stated Complaint: Abd Prob MAYCOL: 3 Review of Systems All systems reviewed & are unremarkable except as noted in HPI and below PFSH All Active Problems (Updated 10/04/21 @ 21:01 by SANDIP Greer) Back pain (Acute) Biliary colic (Acute) Medical History Allergic rhinitis Erectile dysfunction Aiuj-Rmqed-Xmcuoon disease Major depression, chronic JEFF (obstructive sleep apnea) Premature ejaculation Right carpal tunnel syndrome Right shoulder pain Skin lesion Snoring Surgical History S/P medial meniscus repair of right knee Social History Smoking/Tobacco Use Status: Never Smoking risk assessment performed?: Yes Alcohol Intake: current Alcohol Intake frequency: holidays/special occasions only Drug use: Never Substance use type: does not use Do you feel safe at home: Yes Do you feel safe in your relationship?: Yes Exam Const General: cooperative and no acute distress Eyes Other: no jaundice or icterus Resp Effort & Inspection: normal respiratory effort Auscultation: clear to auscultation bilaterally Cardio Rate: regular rate Rhythm: regular rhythm GI Other: RUQ tenderness, no cva tenderness appreciated no rebound or guarding Skin General skin exam: no rashes or lesions noted Neuro General: patient alert and patient oriented x3 Extrem Other: distal pulses intact Course Vital Signs Vital signs: Vital Signs Temperature 36.8 C 10/04/21 17:33 Pulse 96 H 10/04/21 17:33 Respiratory Rate 16 10/04/21 17:33 Blood Pressure 148/94 H 10/04/21 17:33 Pulse Oximetry 97 10/04/21 17:33 Temperature 36.3 C L 10/04/21 21:09 Temperature Source Tympanic 10/04/21 21:09 Pulse 85 10/04/21 19:56 Respiratory Rate 16 10/04/21 17:33 Respiratory Effort 10/04/21 17:37 Blood Pressure 138/90 10/04/21 21:09 Pulse Oximetry 96 10/04/21 21:09 Oxygen Delivery Method Room Air 10/04/21 21:09 Oxygen Flow Rate 0 10/04/21 21:09 Pain Level 4 10/04/21 21:12 Lab/Test Results Lab/Test Results: Laboratory Tests Range/Units 10/04/21 10/04/21 17:55 17:55 WBC (4.4-10.8) 10^3/uL 11.09 H RBC (4.36-5.78) 10^6/uL 5.12 Hgb (13.5-17.5) g/dL 15.3 Hct (40.0-50.0) % 44.5 MCV (80-95) fL 87 MCH (27.0-33.0) pg 29.9 MCHC (32.0-36.0) % 34.4 RDW (11.8-14.1) % 13.2 Plt Count (130-400) 10^3/uL 244 MPV (8.0-11.0) fL 10.1 Immature Gran % 0.4 Neutrophils % 70.0 Lymphocytes % 22.4 Monocytes % 4.9 Eosinophils % 1.9 Basophils % 0.4 Nucleated RBC % (0.0-0.3) % 0.0 Absolute Neutrophils (1.2-6.7) 10^3/uL 7.76 H Absolute Lymphocytes (1.2-3.4) 10^3/uL 2.48 Absolute Monocytes (0.1-0.8) 10^3/uL 0.54 Absolute Eosinophils (0.0-0.7) 10^3/uL 0.21 Absolute Basophils (0.0-0.2) 10^3/uL 0.04 Sodium (136-145) mmol/L 138 Potassium (3.5-5.1) mmol/L 3.3 L Chloride (98-107) mmol/L 105 Carbon Dioxide (21.0-32.0) mmol/L 25.1 Anion Gap (3-11) mmol/L 7.9 BUN (7-18) mg/dL 17 Creatinine (0.70-1.30) mg/dL 1.2 Estimated GFR/1.73 m2 (mL/min/1.73m2) >= 60.00 Glucose (74-106) mg/dL 108 H Calcium (8.5-10.1) mg/dL 8.7 Total Bilirubin (0.2-1.0) mg/dL 0.9 AST (15-37) U/L 19 ALT (16-63) U/L 33 Alkaline Phosphatase (46-116) U/L 96 Total Protein (6.4-8.2) g/dL 7.3 Albumin (3.4-5.0) g/dL 3.7 Lipase (73-393) U/L 84
--- NOTE | 2021-10-04 21:25 | NUR.NOTE ---
Referral faxed to [facility] Christopher Han to f/u abdias for biliary colic. Copy to Care Management to establish surgical consult at [facility] [place] due to bmi. Fitz zarate faxed to [facility] radiology. Nursing Note:
--- NOTE | 2021-10-05 09:37 | DI.US_ITS ---
Exam(s) US ABDOMEN EXAM: US ABDOMEN CLINICAL HISTORY: BILIARY COLIC ?, RUQ PAIN TECHNIQUE: Ultrasound abdomen performed using standard protocol. COMPARISON: CT CT ABDOMEN PELVIS W from 11/26/2020 FINDINGS: LIVER: Mildly enlarged. Severe fatty infiltration. Posterior portions of the liver could not be vis ualized. Portions of the left lobe were obscured by bowel gas... GALLBLADDER: A single small gallstone was identified.. No evidence of wall thickening. No pericholec ystic fluid identified. TIJERINA'S SIGN: Negative. BILIARY SYSTEM: No intrahepatic or extrahepatic biliary ductal dilation. KIDNEYS: Kidneys are symmetric in size. There is a 5 millimeter nonshadowing echogenic focus in the m id left kidney, probable artifact.. No evidence of hydronephrosis. No renal mass or cyst identified. PANCREAS: Not well seen. SPLEEN: Borderline enlargement at 13.5 cm in length. ABDOMINAL AORTA AND IVC: Visualized portions normal caliber. ASCITES: None seen. IMPRESSION: Single gallstone. No evidence of biliary dilatation or acute cholecystitis. Hepatic steatosis. DATA REPOSITORY:
--- NOTE | 2021-10-05 16:37 | PDOC.ERCMPRO ---
- If Service Date Differs Date of service: 10/05/21 Time of Service: 16:37 Care Management Progress Note Malcom is seen in the ED on 10/04/21 for biliary colic and again on 10/05/21 for abdominal pain. At the request of ED provider, CM coordinates a referral to [facility] to assist Malcom in obtaining an appointment for further evaluation and treatment.
== END 2021-10-04 21:23 | disposition home or self-care (01) ==
PROVIDERS: Emergency Provider Physician Assistant; PCP Physician Assistant Medical
DX: K80.50 Calculus of bile duct without cholangitis or cholecystitis without obstruction (principal); D72.829 Elevated white blood cell count, unspecified
CPT/HCPCS: 36415; 80053; 83690; 96374; 96375; 99284; 85025; J1885; J2270

== ENCOUNTER 2021-10-05 09:37 | Emergency (ER) | payer BC, SELFPAY ==
[2021-10-05 09:41] VITALS: BP 153/92; PULSE 75; RESP 18; TEMP 36.9; O2SAT 96
--- NOTE | 2021-10-05 09:46 | W.ED.GENAD ---
Discharge Plan Disposition Patient Disposition: HOME Condition: Stable Discharge Details Clinical Impression: Abdominal pain, Fatty liver Primary Care Provider: Christopher Han ED Provider: Elsie Benjamin Home Meds and New Rx's Prescriptions: Continued loratadine [Claritin] 10 mg tablet 10 mg PO DAILY multivitamin [Daily Multi-Vitamin] Tablet 1 tab PO DAILY pantoprazole [Protonix] 40 mg tablet,delayed release (DR/EC) 40 mg PO DAILY sildenafil (pulm.hypertension) 20 mg tablet 20 mg PO DAILY PRN Rx Instructions: administer doses at least 4-6 hours apart fluticasone propionate 50 mcg/actuation spray,suspension 2 spray JOHNSON DAILY PRN Rx Instructions: administer into each nostril cyclobenzaprine 10 mg tablet 10 mg PO TID Qty: 10 0RF ciprofloxacin HCl 500 mg tablet 500 mg PO BID Qty: 20 0RF metronidazole 500 mg tablet 500 mg PO TID Qty: 30 0RF oxycodone 5 mg capsule 5 mg PO Q8H PRNQty: 10 0RF No Action ibuprofen 800 mg tablet 800 mg PO TID metoclopramide HCl [Reglan] 10 mg tablet 10 mg PO Q6H PRNQty: 10 0RF Discharge Instructions Instructions: Non-Alcoholic Fatty Liver Disease (ED), Abdominal Pain (ED) Additional Instructions: At this time the ultrasound shows a 6 mm mobile gallstone no evidence of infection or common bile duct enlargement. [place] [facility] doctor or general surgeon. Follow up with primary care provider in 3-5 days. Return to ED sooner if any worsening or concerns. Increase oral fluids. Stand Alone Forms: Work Release Medical Decision Making Received preliminary results from [facility]. Please see the official report. Discussed results with patient who verbalizes understanding. He reports that once the pain medications wear off he continues to have sharp stabbing right upper quadrant and right CVA tenderness. He denies any nausea vomiting fever chills or any other associated symptoms. He requests have a light duty work note written as he desires to go back to work. This was given to him. This text was generated using [employer] system, please disregard any oddities of phrase or misspellings. Medical Records Medical records reviewed: Yes I reviewed the patient's medical records. Medical records narrative: Labs from yesterday's visit show normal liver enzymes, no elevated bilirubin, lipase within normal limits. Imaging Data Radiologic Study: Imaging: Ultrasound Radiologist's impression: EXAM: US ABDOMEN CLINICAL HISTORY: BILIARY COLIC ?, RUQ PAIN TECHNIQUE: Ultrasound abdomen performed using standard protocol. COMPARISON: CT CT ABDOMEN PELVIS W from 11/26/2020 FINDINGS: LIVER: Mildly enlarged. Severe fatty infiltration. Posterior portions of the liver could not be visualized. Portions of the left lobe were obscured by bowel gas... GALLBLADDER: A single small gallstone was identified.. No evidence of wall thickening. No pericholecystic fluid identified. TIJERINA'S SIGN: Negative. BILIARY SYSTEM: No intrahepatic or extrahepatic biliary ductal dilation. KIDNEYS: Kidneys are symmetric in size. There is a 5 millimeter nonshadowing echogenic focus in the mid left kidney, probable artifact.. No evidence of hydronephrosis. No renal mass or cyst identified. PANCREAS: Not well seen. SPLEEN: Borderline enlargement at 13.5 cm in length. ABDOMINAL AORTA AND IVC: Visualized portions normal caliber. ASCITES: None seen. IMPRESSION: Single gallstone. No evidence of biliary dilatation or acute cholecystitis. Hepatic steatosis. Lab Data Lab results reviewed: Yes I reviewed the patient's lab results. HPI General Mode of arrival: ambulatory. Date/Time Provider Initiated Documentation: 10/05/21 09:38. Limitations to Documentation: no limitations. Information obtained by: patient, RN notes reviewed and old records reviewed. HPI Narrative: 40-year-old male presents to the ER chief complaint of recheck on ultrasound results patient was seen here in the emergency department yesterday had a work-up CT and was referred for an outpatient ultrasound. He had an abdominal ultrasound this morning. Which showed 6 mm gallstone no evidence of cholecystitis no CBD dilation. Severe fatty liver infiltration. Please see official results. Patient reports that he is been taking the antibiotic as prescribed and is awaiting to hear back from care management. He is requesting a nonnarcotic pain medication if possible and a light duty work note. Related Data Home Medications Medication Instructions Recorded Confirmed loratadine 10 mg tablet (Claritin) 10 mg PO DAILY 09/30/19 10/05/21 multivitamin (Daily Multi-Vitamin 1 tab PO DAILY 09/30/19 10/05/21 tablet) pantoprazole 40 mg tablet,delayed 40 mg PO DAILY 09/30/19 10/05/21 release (Protonix) ibuprofen 800 mg tablet 800 mg PO TID 10/04/19 10/05/21 sildenafil (pulm.hypertension) 20 20 mg PO DAILY PRN 06/05/20 10/05/21 mg tablet fluticasone propionate 50 2 spray intranasal DAILY PRN 08/24/20 10/05/21 mcg/actuation nasal spray,suspension cyclobenzaprine 10 mg tablet 10 mg PO TID #10 tabs 11/26/20 10/05/21 ciprofloxacin HCl 500 mg tablet 500 mg PO BID #20 tabs 10/04/21 10/05/21 metoclopramide HCl 10 mg tablet 10 mg PO Q6H PRN #10 tabs 10/04/21 10/05/21 (Reglan) metronidazole 500 mg tablet 500 mg PO TID #30 tabs 10/04/21 10/05/21 oxycodone 5 mg capsule 5 mg PO Q8H PRN #10 caps 10/04/21 10/05/21 Previous Rx's Medication Instructions Recorded cyclobenzaprine 10 mg tablet 10 mg PO TID #10 tabs 11/26/20 ciprofloxacin HCl 500 mg tablet 500 mg PO BID #20 tabs 10/04/21 metoclopramide HCl 10 mg tablet 10 mg PO Q6H PRN #10 tabs 10/04/21 (Reglan) metronidazole 500 mg tablet 500 mg PO TID #30 tabs 10/04/21 oxycodone 5 mg capsule 5 mg PO Q8H PRN #10 caps 10/04/21 Allergies Allergy/AdvReac Type Severity Reaction Status Date / Time No Known Allergies Allergy Unverified 10/05/21 09:44 General Stated Complaint: Recheck MAYCOL: 4 Review of Systems All systems reviewed & are unremarkable except as noted in HPI and below Gastrointestinal Gastrointestinal: Reports as per HPI, Reports abdominal pain (Right upper quadrant right CVA tenderness stabbing type pain), Denies diarrhea, Denies nausea and Denies vomiting PFSH All Active Problems (Updated 10/05/21 @ 10:05 by Elsie Benjamin NP) Back pain (Acute) Biliary colic (Acute) Abdominal pain (Acute) Fatty liver (Acute) Medical History Allergic rhinitis Erectile dysfunction Kwwr-Wvxuf-Eixhfrm disease Major depression, chronic JEFF (obstructive sleep apnea) Premature ejaculation Right carpal tunnel syndrome Right shoulder pain Skin lesion Snoring Surgical History S/P medial meniscus repair of right knee Social History Smoking/Tobacco Use Status: Never Smoking risk assessment performed?: Yes Alcohol Intake: current Alcohol Intake frequency: holidays/special occasions only Drug use: Never Substance use type: does not use Do you feel safe at home: Yes Do you feel safe in your relationship?: Yes Exam Narrative Exam Narrative: Constitutional: Alert and oriented x3. Appears stated age. Obese body habitus. Head: Normocephalic, no trauma. Eyes: EOM's intact. Eyelids symmetrical without lesions, discharge, or swelling. Respiratory: Breathing eupneic, no respiratory distress no increased work of breathing. O2 sat 96% Abdomen: Soft, non-distended, Normoactive bowel sounds all 4 quads. Course Vital Signs Vital signs: Vital Signs Temperature 36.9 C 10/05/21 09:41 Pulse 75 10/05/21 09:41 Respiratory Rate 18 10/05/21 09:41 Blood Pressure 153/92 H 10/05/21 09:41 Pulse Oximetry 96 10/05/21 09:41 Temperature 36.9 C 10/05/21 09:41 Temperature Source Temporal Artery Scan 10/05/21 09:41 Pulse 75 10/05/21 09:41 Respiratory Rate 18 10/05/21 09:41 Blood Pressure 153/92 H 10/05/21 09:41 Pulse Oximetry 96 10/05/21 09:41 Oxygen Delivery Method Room Air 10/05/21 09:41 Oxygen Flow Rate 0 10/05/21 09:41
--- NOTE | 2021-10-05 10:10 | PDOC.ERCMPRO ---
- If Service Date Differs Date of service: 10/05/21 Time of Service: 10:10 Care Management Progress Note SBIRT screen negative. Pt reports no substance use or mental health symptoms.
--- NOTE | 2021-10-12 15:28 | CMACTNOTE_ITS ---
- If Service Date Differs Date of service: 10/05/21 Time of Service: 15:29 Care Management Activity Note Malcom is seen in the ED for abdominal pain. At the request of ED provider, CM coordinates a referral to [facility] to assist Malcom in obtaining an appointment for further evaluation and treatment of his abdominal pain.
== END 2021-10-05 10:18 | disposition home or self-care (01) ==
PROVIDERS: Emergency Provider Registered Nurse Emergency; PCP Physician Assistant Medical
DX: K76.0 Fatty (change of) liver, not elsewhere classified (principal)
CPT/HCPCS: 99281

== ENCOUNTER 2022-07-27 18:55 | Emergency (ER) | payer BC, SELFPAY ==
[2022-07-27 18:59] VITALS: BP 144/84; PULSE 96; RESP 16; TEMP 36.3; O2SAT 97
--- NOTE | 2022-07-27 19:00 | DI.CT_ITS ---
Exam(s) CT ABDOMEN PELVIS W EXAM: CT ABDOMEN PELVIS W CLINICAL HISTORY: Constipation. TECHNIQUE: Imaging Protocol: Axial computed tomography images with coronal and sagittal reformatted images were created and reviewed CONTRAST MATERIAL: Intravenous: Omnipaque 350 Contrast volume:100 ml Oral: no COMPARISON: CT CT ABDOMEN PELVIS W from 11/26/2020 FINDINGS: ABDOMEN: Lung Bases: Normal where visualized. Liver: Mild fatty infiltration. No measurable mass. Gallbladder and biliary tract: No radiodense calculus or dilation. Pancreas: Normal density, no abnormal calcifications or inflammatory process. Spleen: Large. Kidneys: Normal size, contour and axis. Tiny nonobstructing stone mid right kidney, unchanged from pr ior. No hydronephrosis. No suspicious masses seen. Adrenal glands: No masses seen. Abdominal Aorta: Abdominal portion non-dilated. Soft tissues: Unremarkable. PELVIS: Bladder: No gross wall thickening. No calculi.No focal mass. Bowel: Very little stool in the colon. No obstruction. No bowel wall thickening. Appendix normal. Peritoneal cavity: No ascites, collection or mesenteric inflammatory response. Bones: Within normal limits for age. Reproductive organs: Within normal limits. Lymph nodes: Unremarkable. Impression: No evidence of constipation. Tiny nonobstructing stone right kidney. No acute abnormality. RADIATION DOSE DELIVERED: 1,924.61mGy.cm Total DLP DATA REPOSITORY: All CT scans at this facility are submitted to the National Radiology Data Registry (NRDR) Dose Index Registry (DIR) with the [employer] (ACR). RADIATION OPTIMIZATION: All CT scans at this facility use at least one of these dose optimization te chniques: automated exposure control; mA and/or kV adjustment per patient size (includes targeted exa ms where dose is matched to clinical indication); or iterative reconstruction.
--- NOTE | 2022-07-27 19:15 | ED.GENADUL_ITS ---
Discharge Plan Disposition Patient Disposition: Home Discharge Details Clinical Impression: Constipation Primary Care Provider: Christopher Han ED Provider: Elsie Benjamin Home Meds and New Rx's Prescriptions: Continued loratadine [Claritin] 10 mg tablet 10 mg PO DAILY multivitamin [Daily Multi-Vitamin] Tablet 1 tab PO DAILY ibuprofen 800 mg tablet 800 mg PO TID fluticasone propionate 50 mcg/actuation spray,suspension 2 spray JOHNSON DAILY PRN Rx Instructions: administer into each nostril omeprazole 20 mg capsule,delayed release(DR/EC) 20 mg PO PRN Patient Comments: TAKE 1 CAPSULE BY MOUTH EVERY DAY Discharge Instructions Instructions: Magnesium Citrate (By mouth), Constipation (ED) Additional Instructions: Drink the magnesium citrate when you get home. This should produce a stool in the bowel movement shortly thereafter. If you have any worsening, vomiting or worsening abdominal pain or no stool production within the next 24 hours please return to the ER. Follow up with primary care provider in 3-5 days. Return to ED sooner if any worsening or concerns. Increase oral fluids. Referrals: Christopher Han PA [Primary Care Provider] - 3 days Discharge Data Discharge Date/Time-TO BE ENTERED AT DEPARTURE: 07/27/22 20:41 Medical Decision Making 42-year-old male presents to the ER after not having a bowel movement in the last week. He normally has a bowel movement every day. He reports feeling bloated. He states that he was very hot last night was nauseous and had a heart rate of 115. Denies any other associated symptoms no dysuria, no chest pain no shortness of breath. Past medical history includes major depression, obesity, obstructive sleep apnea. IV labs normal saline and CT abdomen pelvis ordered. Differential diagnosis includes but not limited to constipation, bowel obstruction CBC shows no leukocytosis, CMP is largely within normal limits, glucose 118 AST is 38 lipase 33 which is within normal limits. CT shows no evidence for obstruction. It is mostly collapsed. Patient was given magnesium citrate and instructed on use and given to take at home. Discussed strict return instructions if worsening or vomiting or no bowel movement to return to the ER. He verbalizes understanding. This text was generated using POS on [employer] system, please disregard any oddities of phrase or misspellings. Imaging Data Radiologic Study: Imaging: CT Scan Radiologist's impression: FINDINGS: Lungs: Lung bases clear. Liver: Normal appearing liver. Gallbladder and bile ducts: Gallbladder not identified, suspected to be surgically absent. Correlation with surgical history recommended. No biliary dilatation. Pancreas: Normal appearing pancreas. Spleen: Splenomegaly, 16.8 cm craniocaudal dimension. Adrenal glands: Normal appearing adrenal glands. Kidneys and ureters: 3 mm nonobstructing right renal calculus. Small indeterminate hypoattenuating renal lesions, incompletely characterized but statistically most likely renal cysts. No hydronephrosis. No obstructing ureteral stones. Stomach and bowel: No oral contrast. Stomach moderately distended with fluid and ingested material. No small bowel dilatation to suggest obstruction. Colon well evacuated of fecal material and collapsed through much of its course. No imaging evidence of constipation. No evidence of diverticulitis or colitis. Appendix: Normal appendix Intraperitoneal space: No gross ascites or free air. Vasculature: Normal caliber abdominal aorta. Lymph nodes: No pathologically enlarged mesenteric, retroperitoneal, or pelvic sidewall lymph nodes. Urinary bladder: Normal appearing urinary bladder. Reproductive: Normal-appearing prostate gland and seminal vesicles. Bones/joints: No acute fracture seen among the bones of the abdomen or pelvis. Soft tissues: No significant ventral or inguinal hernia. IMPRESSION: 1. Colon largely well evacuated of fecal material and collapsed through much of its course. No imaging evidence of constipation. 2. 2 mm nonobstructing right renal calculus. 3. Splenomegaly, 16.8 cm. Lab Data Lab results reviewed: Yes I reviewed the patient's lab results. Labs: Laboratory Tests Range/Units 07/27/22 07/27/22 19:22 19:22 WBC (4.4-10.8) 10^3/uL 4.80 RBC (4.36-5.78) 10^6/uL 4.94 Hgb (13.5-17.5) g/dL 15.0 Hct (40.0-50.0) % 43.4 MCV (80-95) fL 88 MCH (27.0-33.0) pg 30.4 MCHC (32.0-36.0) % 34.6 RDW (11.8-14.1) % 13.2 Plt Count (130-400) 10^3/uL 158 MPV (8.0-11.0) fL 9.5 Immature Gran % 0.4 Neutrophils % 67.8 Lymphocytes % 19.6 Monocytes % 10.6 Eosinophils % 1.0 Basophils % 0.6 Nucleated RBC % (0.0-0.3) % 0.0 Absolute Neutrophils (1.2-6.7) 10^3/uL 3.25 Absolute Lymphocytes (1.2-3.4) 10^3/uL 0.94 L Absolute Monocytes (0.1-0.8) 10^3/uL 0.51 Absolute Eosinophils (0.0-0.7) 10^3/uL 0.05 Absolute Basophils (0.0-0.2) 10^3/uL 0.03 Sodium (136-145) mmol/L 139 Potassium (3.5-5.1) mmol/L 3.5 Chloride (98-107) mmol/L 105 Carbon Dioxide (21.0-32.0) mmol/L 27.4 Anion Gap (3-11) mmol/L 6.6 BUN (7-18) mg/dL 14 Creatinine (0.70-1.30) mg/dL 1.3 Est GFR (CKD-EPI 2020) (mL/min/1.73m2) 69.47 Glucose (74-106) mg/dL 118 H Calcium (8.5-10.1) mg/dL 8.4 L Magnesium (1.8-2.4) mg/dL 1.8 Total Bilirubin (0.2-1.0) mg/dL 0.6 AST (15-37) U/L 38 H ALT (16-63) U/L 51 Alkaline Phosphatase (46-116) U/L 104 Total Protein (6.4-8.2) g/dL 7.1 Albumin (3.4-5.0) g/dL 3.2 L Lipase (16-77) U/L 33 HPI General Mode of arrival: ambulatory . Date/Time Provider Initiated Documentation: 07/27/22 19:05 . Limitations to Documentation: no limitations . Information obtained by: patient, RN notes reviewed and old records reviewed . HPI Narrative: 42-year-old male presents to the ER after not having a bowel movement in the last week. He normally has a bowel movement every day. He reports feeling bloated. He states that he was very hot last night was nauseous and had a heart rate of 115. Denies any other associated symptoms no dysuria, no chest pain no shortness of breath. Past medical history includes major depression, obesity, obstructive sleep apnea. Related Data Home Medications Medication Instructions Recorded Confirmed loratadine 10 mg tablet (Claritin) 10 mg PO DAILY 09/30/19 07/27/22 multivitamin (Daily Multi-Vitamin 1 tab PO DAILY 09/30/19 07/27/22 tablet) ibuprofen 800 mg tablet 800 mg PO TID 10/04/19 07/27/22 fluticasone propionate 50 2 spray intranasal DAILY PRN 08/24/20 07/27/22 mcg/actuation nasal spray,suspension omeprazole 20 mg capsule,delayed 20 mg PO PRN 07/27/22 release Allergies Allergy/AdvReac Type Severity Reaction Status Date / Time No Known Allergies Allergy Unverified 07/27/22 19:03 General Stated Complaint: Abd Prob MAYCOL: 3 Review of Systems All systems reviewed & are unremarkable except as noted in HPI and below Gastrointestinal Gastrointestinal: Reports bloating, Reports change in bowel habits and Reports constipation PFSH All Active Problems (Updated 07/27/22 @ 20:29 by Elsie Benjamin NP) Back pain (Acute) Constipation (Acute) Medical History Allergic rhinitis Erectile dysfunction Xdah-Atjma-Wkodhxo disease Major depression, chronic JEFF (obstructive sleep apnea) Premature ejaculation Right carpal tunnel syndrome Right shoulder pain Skin lesion Snoring Surgical History S/P medial meniscus repair of right knee Social History Smoking/Tobacco Use Status: Never Smoking risk assessment performed?: Yes Alcohol Intake: current Alcohol Intake frequency: holidays/special occasions only Drug use: Never Substance use type: does not use Do you feel safe at home: Yes Do you feel safe in your relationship?: Yes Exam Narrative Exam Narrative: Constitutional: Alert and oriented x3. Appears stated age. Obese body habitus. Head: Normocephalic, no trauma. Eyes: Pupils PERRL, Red reflex noted, EOM's intact. Eyelids symmetrical without lesions, discharge, or swelling. ENT: Bilateral TM's WNL, External ear normal to inspection, no mastoid TTP, swelling, or erythema, Nasal turbinates WNL, no nasal discharge. Normal dentition, Posterior pharynx WNL, no exudate. Chest: RRR, Normal S1, S2, distal pulses intact. Resp: Lungs clear to auscultation bilaterally, no wheezes, rales, or rhonchi. Abdomen: Soft, non-distended, hypoactive bowel sounds all 4 quads. Musculoskeletal: Normal gait, 5/5 strength to all four extremities. Skin: No suspicious rashes or lesions. Capillary refill less than 2 sec. Neurologic: Cranial nerves II-XII intact. Alert and oriented x 3. Motor: No deficits noted. Sensory: Intact bilaterally all 4 extremities. Reflexes: DTR's intact bilaterally.. Hematologic/Lymphatic: No ecchymosis, no lymphadenopathy. Course Vital Signs Vital signs: Vital Signs Temperature 36.3 C L 07/27/22 18:59 Pulse 96 H 07/27/22 18:59 Respiratory Rate 16 07/27/22 18:59 Blood Pressure 144/84 H 07/27/22 18:59 Pulse Oximetry 97 07/27/22 18:59 Temperature 36.3 C L 07/27/22 18:59 Temperature Source Temporal Artery Scan 07/27/22 18:59 Pulse 96 H 07/27/22 18:59 Respiratory Rate 16 07/27/22 18:59 Respiratory Effort Normal 07/27/22 18:59 Blood Pressure 144/84 H 07/27/22 18:59 Blood Pressure Position Sitting 07/27/22 18:59 Pulse Oximetry 97 07/27/22 18:59 Oxygen Delivery Method Room Air 07/27/22 18:59 Oxygen Flow Rate 0 07/27/22 18:59 Pain Level 0 07/27/22 18:59
[2022-07-27 19:26] LABS: Abs Immature Grans 0.02 10^3/uL (0.0-0.06); Absolute Basophil Count 0.03 10^3/uL (0.0-0.2); Absolute Eosinophil Count 0.05 10^3/uL (0.0-0.7); Absolute Lymphocyte Count 0.94 10^3/uL (1.2-3.4); Absolute Monocyte Count 0.51 10^3/uL (0.1-0.8); Absolute Neutrophil Count 3.25 10^3/uL (1.2-6.7); Basophils % 0.6; HCT 43.4 % (40.0-50.0); Immature Grans % 0.4; Lymphocytes % 19.6; MCH 30.4 pg (27.0-33.0); MCHC 34.6 % (32.0-36.0); MCV 88 fL (80-95); MPV 9.5 fL (8.0-11.0); Monocytes % 10.6; Neutrophils % 67.8; Platelet Count 158 10^3/uL (130-400); RBC 4.94 10^6/uL (4.36-5.78); RDW 13.2 % (11.8-14.1); RDW-SD 42.7 fL
[2022-07-27] MEDS: Normal Saline - Diluent 50 ML VIAL IJ (19:38)
[2022-07-27] MEDS: Omnipaque 350 MG/ML 100 ML BTL IJ (19:39)
[2022-07-27 19:42] LABS: ALT 51 U/L (16-63); AST 38 U/L (15-37); Albumin 3.2 g/dL (3.4-5.0); Alkaline Phosphatase 104 U/L (46-116); Anion Gap 6.6 mmol/L (3-11); BUN 14 mg/dL (7-18); Bilirubin, Total 0.6 mg/dL (0.2-1.0); CO2 27.4 mmol/L (21.0-32.0); CREATININE 1.3 mg/dL (0.70-1.30); Calcium 8.4 mg/dL (8.5-10.1); Chloride 105 mmol/L (98-107); Estimated GFR 69.47 (mL/min/1.73m2); Glucose 118 mg/dL (74-106); Lipase 33 U/L (16-77); Magnesium 1.8 mg/dL (1.8-2.4); Potassium 3.5 mmol/L (3.5-5.1); Sodium 139 mmol/L (136-145); Total Protein 7.1 g/dL (6.4-8.2)
--- NOTE | 2022-07-27 20:11 | DI.VRAD_ITS ---
PROCEDURE INFORMATION: Exam: CT Abdomen And Pelvis With Contrast Exam date and time: 07/27/2022 7:36 PM Age: 42 years old Clinical indication: Constipation; Patient HX: Constipated TECHNIQUE: Imaging protocol: Computed tomography of the abdomen and pelvis with contrast. Contrast material: OMNIPAQUE 350; Contrast volume: 100 ml; Contrast route: INTRAVENOUS (IV); COMPARISON: CT ABDOMEN PELVIS W 11/26/2020 10:51 PM FINDINGS: Lungs: Lung bases clear. Liver: Normal appearing liver. Gallbladder and bile ducts: Gallbladder not identified, suspected to be surgically absent. Correlation with surgical history recommended. No biliary dilatation. Pancreas: Normal appearing pancreas. Spleen: Splenomegaly, 16.8 cm craniocaudal dimension. Adrenal glands: Normal appearing adrenal glands. Kidneys and ureters: 3 mm nonobstructing right renal calculus. Small indeterminate hypoattenuating renal lesions, incompletely characterized but statistically most likely renal cysts. No hydronephrosis. No obstructing ureteral stones. Stomach and bowel: No oral contrast. Stomach moderately distended with fluid and ingested material. No small bowel dilatation to suggest obstruction. Colon well evacuated of fecal material and collapsed through much of its course. No imaging evidence of constipation. No evidence of diverticulitis or colitis. Appendix: Normal appendix Intraperitoneal space: No gross ascites or free air. Vasculature: Normal caliber abdominal aorta. Lymph nodes: No pathologically enlarged mesenteric, retroperitoneal, or pelvic sidewall lymph nodes. Urinary bladder: Normal appearing urinary bladder. Reproductive: Normal-appearing prostate gland and seminal vesicles. Bones/joints: No acute fracture seen among the bones of the abdomen or pelvis. Soft tissues: No significant ventral or inguinal hernia. IMPRESSION: 1. Colon largely well evacuated of fecal material and collapsed through much of its course. No imaging evidence of constipation. 2. 2 mm nonobstructing right renal calculus. 3. Splenomegaly, 16.8 cm. Dictated and Authenticated by: Wayne Nino MD. Ordering:RONALDO Zimmerman MD
[2022-07-27 20:46] VITALS: BP 131/64; PULSE 82; RESP 16; O2SAT 97
[2022-07-27] MEDS: Magnesium Citrate 300 ML BTL PO (20:46)
== END 2022-07-27 20:41 | disposition home or self-care (01) ==
PROVIDERS: Emergency Provider Registered Nurse Emergency; PCP Physician Assistant Medical
DX: K59.00 Constipation, unspecified (principal)
CPT/HCPCS: 80053; 83690; 99285; 74177; 83735; 85025; 99284; J3490

== ENCOUNTER 2022-11-05 09:22 | Outpatient (REF) | payer BC, SELFPAY ==
[2022-11-05 15:00] LABS: HCT 47.4 % (40.0-50.0); HGB 16.6 g/dL (13.5-17.5); MCH 30.6 pg (27.0-33.0); MCV 88 fL (80-95); MPV 10.1 fL (8.0-11.0); Platelet Count 301 10^3/uL (130-400); RBC 5.42 10^6/uL (4.36-5.78); RDW 13.6 % (11.8-14.1); RDW-SD 43.4 fL; WBC 10.52 10^3/uL (4.4-10.8)
[2022-11-05 15:21] LABS: ALT 30 U/L (16-63); AST 20 U/L (15-37); Albumin 3.7 g/dL (3.4-5.0); Alkaline Phosphatase 115 U/L (46-116); Anion Gap 7.5 mmol/L (3-11); BUN 13 mg/dL (7-18); Bilirubin, Total 0.8 mg/dL (0.2-1.0); CO2 25.5 mmol/L (21.0-32.0); CREATININE 1.1 mg/dL (0.70-1.30); Calculated LDL 131 mg/dL (<100); Chloride 103 mmol/L (98-107); Cholesterol 197 mg/dL (<200); Estimated GFR 84.89 (mL/min/1.73m2); Glucose 95 mg/dL (74-106); HDL Cholesterol 37 mg/dL (40-60); Potassium 3.9 mmol/L (3.5-5.1); Sodium 136 mmol/L (136-145); TSH (W/Ref FT4) 1.44 uIU/mL (0.36-3.74); Total Protein 7.8 g/dL (6.4-8.2); Triglyceride 145 mg/dL (<150)
== END 2022-11-05 09:23 | disposition home or self-care (01) ==
LOC: NCHCN 09:22
PROVIDERS: PCP Physician Assistant Medical; Visit Provider Physician Assistant Medical
DX: K76.0 Fatty (change of) liver, not elsewhere classified (principal); E66.9 Obesity, unspecified; E78.49 Other hyperlipidemia
CPT/HCPCS: 80053; 80061; 85027; 83036; 84443

== ENCOUNTER 2023-09-07 18:05 | Emergency (ER) | payer SELFPAY ==
[2023-09-07 18:08] VITALS: BP 175/115; PULSE 98; RESP 22; TEMP 36.4; O2SAT 95
[2023-09-07 18:20] VITALS: BP 175/115; PULSE 98; RESP 22; TEMP 36.4; O2SAT 95
--- NOTE | 2023-09-07 18:38 | W.ED.GENAD ---
Discharge Plan Disposition Patient Disposition: Home Discharge Details Clinical Impression: Lymphadenopathy of head and neck, Elevated blood pressure reading Primary Care Provider: Christopher Han ED Provider: Mumtaz Dewey Home Meds and New Rx's Prescriptions: New amoxicillin-pot clavulanate 875-125 mg tablet 1 tab PO Q12H 6 Days Qty: 12 0RF Continued loratadine [Claritin] 10 mg tablet 10 mg PO DAILY multivitamin [Daily Multi-Vitamin] Tablet 1 tab PO DAILY ibuprofen 800 mg tablet 800 mg PO TID fluticasone propionate 50 mcg/actuation spray,suspension 2 spray JOHNSON DAILY PRN Rx Instructions: administer into each nostril omeprazole 20 mg capsule,delayed release(DR/EC) 20 mg PO DAILY PRN Patient Comments: TAKE 1 CAPSULE BY MOUTH EVERY DAY metformin 500 mg tablet extended release 24 hr 500 mg PO QHS Patient Comments: TAKE 1 TABLET BY MOUTH EVERY DAY AT BEDTIME Discharge Instructions Instructions: Lymphadenitis Additional Instructions: As discussed please continue to monitor symptoms and return immediately to the emergency department for any new or significant worsening of your condition. Otherwise follow-up with primary care provider if not improving. Please take antibiotics as prescribed and for the full course of medication. Your blood pressure was noted to be elevated here in the emergency department but given that you have no history of this please follow-up with your primary care provider for recheck of your blood pressure. Stand Alone Forms: Work Release Referrals: Christopher Han PA [Primary Care Provider] - (As needed for reassessment) HPI General Mode of arrival: ambulatory. Date/Time Provider Initiated Documentation: 09/07/23 18:13. Limitations to Documentation: no limitations. Information obtained by: patient, family and RN notes reviewed. History of Present Illness 43 year old M presents to the emergency department with the chief complaint of Left ear swelling, described as moderate, Patient started experiencing this day(s) (3) and it has been constant. No relieving factors improve symptom(s), No exacerbating factors reported . Patient notes no other symptoms.. Patient did receive the following treatments prior to arrival, none Related Data Home Medications Medication Instructions Recorded Confirmed loratadine 10 mg tablet (Claritin) 10 mg PO DAILY 09/30/19 09/07/23 multivitamin (Daily Multi-Vitamin 1 tab PO DAILY 09/30/19 09/07/23 tablet) ibuprofen 800 mg tablet 800 mg PO TID 10/04/19 09/07/23 fluticasone propionate 50 2 spray intranasal DAILY PRN 08/24/20 09/07/23 mcg/actuation nasal spray,suspension omeprazole 20 mg capsule,delayed 20 mg PO DAILY PRN 07/27/22 09/07/23 release amoxicillin 875 mg-potassium 1 tab PO Q12H 6 days #12 tabs 09/07/23 clavulanate 125 mg tablet metformin 500 mg tablet,extended 500 mg PO QHS 09/07/23 09/07/23 release 24 hr Previous Rx's Medication Instructions Recorded amoxicillin 875 mg-potassium 1 tab PO Q12H 6 days #12 tabs 09/07/23 clavulanate 125 mg tablet Allergies Allergy/AdvReac Type Severity Reaction Status Date / Time No Known Allergies Allergy Unverified 09/07/23 18:10 General Stated Complaint: EarProblem MAYCOL: 3 Review of Systems Constitutional Constitutional: Denies chills, Denies fever(s) and Denies headache(s) ENT Ears, Nose, Mouth, and Throat: Denies ear discharge, Denies otalgia, Denies headache(s), Denies nasal congestion, Denies sore throat and Denies throat swelling Respiratory Respiratory: Denies cough Integumentary/Breasts Skin/Breast: Reports erythema and Denies rash Neurologic Neurologic: Denies headache(s) Allergic/Immunologic Allergic/Immunologic: Denies throat swelling Exam Const General: cooperative, comfortable and no acute distress Orientation: alert and awake [facility] Head: normal to inspection, normocephalic and atraumatic Ears: hearing grossly normal bilaterally, TM's normal bilaterally and periauricular adenopathy on the left (Posterior auricular lymphadenopathy with erythema) General nose exam: external nose normal Face and sinus: no erythema Mouth: oral mucosae normal, no drooling, no muffled voice and no trismus Throat: posterior oropharynx normal Neck Neck: normal visual inspection, full ROM, no meningeal signs, trachea midline and supple Resp Effort & Inspection: normal respiratory effort and able to speak in complete sentences Skin General skin exam: no rashes or lesions noted and dry skin (warm) Neuro General: patient alert, patient awake, patient oriented x3, gait normal and moves all extremities Cognition: normal cognition Speech: speech normal Course Vital Signs Vital signs: Vital Signs Temperature 36.4 C L 09/07/23 18:08 Pulse 98 H 09/07/23 18:08 Respiratory Rate 22 09/07/23 18:08 Blood Pressure 175/115 H 09/07/23 18:08 Pulse Oximetry 95 09/07/23 18:08 Temperature 36.4 C L 09/07/23 18:20 Temperature Source Tympanic 09/07/23 18:20 Pulse 98 H 09/07/23 18:20 Respiratory Rate 22 09/07/23 18:20 Respiratory Effort Normal, Non-Labored 09/07/23 18:12 Blood Pressure 175/115 H 09/07/23 18:20 Blood Pressure Position Sitting 09/07/23 18:20 Pulse Oximetry 95 09/07/23 18:20 Oxygen Delivery Method Room Air 09/07/23 18:20 Oxygen Flow Rate 0 09/07/23 18:08 Pain Level 2 09/07/23 18:20 Medical Decision Making Patient presenting to the emergency department for chief complaint of swelling behind left ear. Patient reports that this started 3 days ago and has progressively gotten worse. Patient denies any injury or trauma, drainage from the ear, fever or chills, dental discomfort or swelling, difficulty swallowing or breathing. Physical exam shows erythematous and tender lymphadenopathy postauricular on the left side with slight submental swelling inferior to the ear. Exam is otherwise completely noncontributory. Patient is hypertensive which he says is due to anxiety but typically has low blood pressure. We do not have availability of CT imaging at this time but clinical presentation is not consistent with deep neck space infection ( Retropharyngeal abscess, Ezequiel's angina, Parapharyngeal space infection, Peritonsillar Abscess ([employer])) or Epiglottitis. Pt non toxic and stable. Giving worsening lymphadenopathy with no obvious source will place patient on Augmentin for the next week and have patient monitor symptoms. Did inform patient that no CT imaging was available and that he should return immediately for any new or significant worsening of symptoms that we would discuss further laboratory workup and imaging if needed but given nonemergent appearance at this time I do feel that patient can monitor symptoms at home and he seems reliable. After discussion of diagnosis and plan of care patient has no further needs, questions, or concerns and states clear understanding to return to the emergency department for any worsening symptoms. This documentation was generated using [employer] dictation system, please disregard any oddities of phrase or misspellings. Quality:SDOH Health Related Social Needs: No Data to Display PFSH All Active Problems Elevated blood pressure reading (Acute) Lymphadenopathy of head and neck (Acute) Back pain (Acute) Medical History JEFF (obstructive sleep apnea) Erectile dysfunction Major depression, chronic Sump-Sdqql-Jurmaph disease Allergic rhinitis Premature ejaculation Snoring Right shoulder pain Skin lesion Right carpal tunnel syndrome Surgical History S/P medial meniscus repair of right knee Social History Smoking/Tobacco Use Status: Never Smoking risk assessment performed?: Yes Alcohol Intake: current Alcohol Intake frequency: a few times a month Drug use: Never Substance use type: does not use Do you feel safe at home: Yes Do you feel safe in your relationship?: Yes PAWSS Have you Been Recently Intoxicated or Drunk Within the Last 30 days?: No Have you Ever Experienced Previous Episodes of Alcohol Withdrawal?: No Have you ever Experienced Withdrawal Seizures?: No Have you ever Experienced Delirium Tremens(DT)s?: No Have you ever undergone Alcohol Rehabilitation Treatment (i.e, inpt ot outpatient treatment programs)?: No Have you ever Experienced Blackouts?: No Have you ever Combined Alcohol with other Downers within the last 90 days?: No Have you ever Combined Alcohol with any other Substance of Abuse during the last 90 days?: No Positive Blood Alcohol level on Presentation? [PCS.BAL]: No Evidence of Increased Autonomic Activity (i.e. HR>120, tremor, sweating, agitation, nausea)?: No Result: 0
[2023-09-07] MEDS: Amox. 875/Clav. 125, 2 TABS/BTL 1 TAB PO (18:57)
[2023-09-07 18:58] VITALS: BP 175/115; PULSE 88; RESP 18; TEMP 36.4; O2SAT 95
== END 2023-09-07 19:01 | disposition home or self-care (01) ==
LOC: ER 19:00
PROVIDERS: Emergency Provider Nurse Practitioner Family; PCP Physician Assistant Medical
DX: R59.0 Localized enlarged lymph nodes (principal); R03.0 Elevated blood-pressure reading, without diagnosis of hypertension
CPT/HCPCS: 99283

== ENCOUNTER 2024-03-28 17:37 | Emergency (ER) | payer OTHER, SELFPAY ==
[2024-03-28 17:40] VITALS: BP 176/105; PULSE 100; RESP 16; TEMP 36.9; O2SAT 98
--- NOTE | 2024-03-28 17:48 | W.ED.GENAD ---
Discharge Plan Disposition Patient Disposition: Home Condition: Good Discharge Details Clinical Impression: Acute pain of left hip, Elevated blood pressure reading Primary Care Provider: Christopher Han ED Provider: Clarita Venegas Home Meds and New Rx's Prescriptions: Continued loratadine [Claritin] 10 mg tablet 10 mg PO DAILY multivitamin [Daily Multi-Vitamin] Tablet 1 tab PO DAILY ibuprofen 800 mg tablet 800 mg PO TID fluticasone propionate 50 mcg/actuation spray,suspension 2 spray JOHNSON DAILY PRN Rx Instructions: administer into each nostril omeprazole 20 mg capsule,delayed release(DR/EC) 20 mg PO DAILY PRN Patient Comments: TAKE 1 CAPSULE BY MOUTH EVERY DAY Discharge Instructions Additional Instructions: Please call your primary care provider to schedule follow-up appointment in the next couple of days for reassessment. I also recommend discussing your elevated blood pressure, as treatment may be indicated. You may continue to use Tylenol and ibuprofen as needed for discomfort. Lidocaine patches available [id number] may also be helpful in the area of discomfort. Heat and ice may also be used, but do not apply this over the lidocaine patch. Muscle rubs and gentle massage may also be helpful. Return to emergency care if you develop new leg weakness, numbness, change in bowel or bladder function, fevers associated with hip pain, chest pains, shortness of breath, or if you are very worried and need to be rechecked again immediately. Stand Alone Forms: Work Release Referrals: Christopher Han PA [Primary Care Provider] - [facility] General Date/Time Provider Initiated Documentation: 03/28/24 17:46. [facility] Narrative: Malcom is a 43 year old male who presents to the emergency department today for evaluation of left hip pain. He reports that he slipped and fell onto his left hip while he was loading luggage into the car, landed directly on the hip. Since then he has had pain with weightbearing and an occasional feeling like the hip is going to give out. He denies back pain, saddle anesthesia, change in bowel or bladder function, distal numbness/tingling, other extremity injuries, head strike. He took ibuprofen 800 milligrams immediately before coming to the emergency department. 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 He was advised that he would likely need a hip replacement when he got older, but has not had any problems with that since then. Physical exam reassuring. No obvious deformity, point tenderness to palpation, ecchymosis/erythema, skin tears, or bruising. Distal pulses intact. Patient does have full external and internal rotation of hip and 5 out of 5 muscle strength to lower extremity, though he does have discomfort with external rotation. No T-spine or L-spine step-off/tenderness/deformity or paraspinal tenderness. Easy work of breathing, patient is in no acute distress, is comfortable at rest. D/dx includes but is not limited to: Contusion, fracture, other soft tissue injury, dislocation less likely I independently interpreted the following tests: L hip xray unremarkable, no acute abnormality noted. This was confirmed by radiologist. While in the emergency department, Malcom received an ice pack for discomfort. He took 800 mg ibuprofen immediately before arrival to ED. Overall workup today reassuring. Likely soft tissue injury. Recommend follow-up with orthopedics if symptoms persist for further evaluation/management. BP noted to be elevated, recommend f/u with PCP, as this has been noted on previous visits as well. Reviewed discharge instructions with patient, including symptomatic management and red flags indicating need for return to emergency care. Work note provided for return to work on Friday. Related Data Home Medications ?Medication ?Instructions ?Recorded ?Confirmed loratadine 10 mg tablet (Claritin) 10 mg PO DAILY 09/30/19 03/28/24 multivitamin (Daily Multi-Vitamin 1 tab PO DAILY 09/30/19 03/28/24 tablet) ibuprofen 800 mg tablet 800 mg PO TID 10/04/19 03/28/24 fluticasone propionate 50 2 spray intranasal DAILY PRN 08/24/20 03/28/24 mcg/actuation nasal spray,suspension omeprazole 20 mg capsule,delayed 20 mg PO DAILY PRN 07/27/22 03/28/24 release Allergies Allergy/AdvReac Type Severity Reaction Status Date / Time No Known Allergies Allergy Unverified 03/28/24 17:43 General Stated Complaint: Orthopedic MAYCOL: 4 Review of Systems Narrative: see HPI Exam Const General: cooperative, healthy appearing, comfortable, no acute distress and well developed Nutritional Appearance: obese Orientation: alert and oriented x3 Back/Spine/Pelvis Thoracic/Lumbar Spine: thoracic and lumbar spine normal to inspection, thoraco-lumbar ROM normal and No paraspinal tenderness Skin General skin exam: no rashes or lesions noted Trauma: no lacerations or abrasions Neuro General: patient alert, patient oriented x3, tone normal and moves all extremities Sensory Exam: no sensory deficits noted Extrem Right lower extremity: normal to inspection, full ROM and hip/thigh (some discomfort elicited with far limits of external rotation) Details: normal to inspection and normal ROM; no tenderness, no swelling, no abrasions, no lacerations, no ecchymosis, no crepitus, no foreign bodies, no penetrating wound, no deformity and no unusual warmth Course Vital Signs Vital signs: Vital Signs Temperature 36.9 C 03/28/24 17:40 Pulse 100 H 03/28/24 17:40 Respiratory Rate 16 03/28/24 17:40 Blood Pressure 176/105 H 03/28/24 17:40 Pulse Oximetry 98 03/28/24 17:40 Temperature 36.9 C 03/28/24 17:40 Pulse 100 H 03/28/24 17:40 Respiratory Rate 16 03/28/24 17:40 Blood Pressure 176/105 H 03/28/24 17:40 Pulse Oximetry 98 03/28/24 17:40 Pain Level 7 03/28/24 17:40 Medical Decision Making Quality:SDOH Health Related Social Needs: No Data to Display PFSH All Active Problems (Updated 03/28/24 @ 19:47 by Clarita Martinez) Elevated blood pressure reading (Acute) Acute pain of left hip (Acute) Back pain (Acute) Medical History JEFF (obstructive sleep apnea) Erectile dysfunction Major depression, chronic Phrg-Ziisy-Tuoflsh disease Allergic rhinitis Premature ejaculation Snoring Right shoulder pain Skin lesion Right carpal tunnel syndrome Surgical History S/P medial meniscus repair of right knee Social History Smoking/Tobacco Use Status: Never Smoking risk assessment performed?: Yes Alcohol Intake: current Alcohol Intake frequency: a few times a month Drug use: Never Substance use type: does not use Do you feel safe at home: Yes Do you feel safe in your relationship?: Yes
--- NOTE | 2024-03-28 18:00 | DI.RAD_ITS ---
Exam(s) XR HIP LT COMPLETE AP PELVIS EXAM: XR HIP LT COMPLETE AP PELVIS CLINICAL HISTORY: L hip pain s/p fall, h/o [id number]. TECHNIQUE: 2D digital imaging was performed. Two views. COMPARISON: CR CHEST 2 VIEWS PA,LAT from 12/06/2012 FINDINGS: BONES: No acute fracture is present. No bony destructive lesion is seen. JOINTS: No dislocation present. The SI joints and pubic symphysis are intact. The the left acetabulu m is mildly shallow. Mild chronic deformity the left femoral head. Acetabular spurring on the right . SOFT TISSUE: Normal. IMPRESSION: No acute abnormality. DATA REPOSITORY: RADIATION DOSE DELIVERED:
[2024-03-28 18:23] VITALS: BP 168/120; PULSE 82; O2SAT 96
--- NOTE | 2024-03-28 19:34 | DI.VRAD_ITS ---
PROCEDURE INFORMATION: Exam: XR Left Hip Exam date and time: 03/28/2024 6:13 PM Age: 43 years old Clinical indication: Left hip; Patient HX: L hip pain S/P fall, h/o [id number] TECHNIQUE: Imaging protocol: Radiologic exam of the left hip. Views: 2 or 3 views hip with pelvis when performed. COMPARISON: CT ABDOMEN PELVIS W 07/27/2022 7:36 PM FINDINGS: Bones/joints: Unremarkable. No acute fracture. Soft tissues: Unremarkable. IMPRESSION: No acute findings. Dictated and Authenticated by: Emeka Araya MD. Ordering:LOY Otto MD
[2024-03-28] MEDS: Methocarbamol 500 MG TAB PO (19:52)
[2024-03-28 19:53] VITALS: BP 152/84; PULSE 78; RESP 16; O2SAT 97
== END 2024-03-28 19:54 | disposition home or self-care (01) ==
PROVIDERS: Emergency Provider Nurse Practitioner Family; PCP Physician Assistant Medical
DX: M25.552 Pain in left hip (principal); R03.0 Elevated blood-pressure reading, without diagnosis of hypertension; W18.39XA Other fall on same level, initial encounter; Y93.01 Activity, walking, marching and hiking; Y92.014 Private driveway to single-family (private) house as the place of occurrence of the external cause
CPT/HCPCS: 99283; 73502

== ENCOUNTER 2024-05-26 17:29 | Outpatient (REF) | payer OTHER, SELFPAY ==
[2024-05-26 20:51] LABS: Hemoglobin A1C 5.4 % (<5.7)
[2024-05-26 20:59] LABS: ALT 72 U/L (16-63); AST 40 U/L (15-37); Albumin 3.4 g/dL (3.4-5.0); Alkaline Phosphatase 123 U/L (46-116); BUN 16 mg/dL (7-18); Bilirubin, Total 0.7 mg/dL (0.2-1.0); CREATININE 1.3 mg/dL (0.70-1.30); Calcium 8.9 mg/dL (8.5-10.1); Calculated LDL 69 mg/dL (<100); Chloride 104 mmol/L (98-107); Cholesterol 157 mg/dL (<200); Estimated GFR 69.04 (mL/min/1.73m2); Glucose 141 mg/dL (74-106); HDL Cholesterol 36 mg/dL (>or=40); Potassium 3.9 mmol/L (3.5-5.1); Sodium 139 mmol/L (136-145); TSH (W/Ref FT4) 1.58 uIU/mL (0.36-3.74); Total Protein 6.9 g/dL (6.4-8.2); Triglyceride 261 mg/dL (<150)
== END 2024-05-26 17:30 | disposition home or self-care (01) ==
LOC: NCHCN 17:29
PROVIDERS: PCP Physician Assistant Medical; Visit Provider Physician Assistant Medical
DX: E66.9 Obesity, unspecified (principal)
CPT/HCPCS: 80053; 80061; 83036; 84443

== ENCOUNTER 2024-07-14 15:14 | Outpatient (REF) | payer OTHER, SELFPAY ==
[2024-07-14 20:31] LABS: Abs Immature Grans 0.03 10^3/uL (0.0-0.06); Absolute Basophil Count 0.05 10^3/uL (0.0-0.2); Absolute Lymphocyte Count 1.95 10^3/uL (1.2-3.4); Absolute Monocyte Count 0.67 10^3/uL (0.1-0.8); Absolute Neutrophil Count 5.49 10^3/uL (1.2-6.7); Basophils % 0.6 %; Eosinophils % 1.2 %; HCT 45.5 % (40.0-50.0); HGB 15.9 g/dL (13.5-17.5); Immature Grans % 0.4 %; Lymphocytes % 23.5 %; MCH 31.2 pg (27.0-33.0); MCHC 34.9 % (32.0-36.0); MCV 89 fL (80-95); Monocytes % 8.1 %; Neutrophils % 66.2 %; Platelet Count 256 10^3/uL (130-400); RDW 13.6 % (11.8-14.1); RDW-SD 44.6 fL; WBC 8.29 10^3/uL (4.4-10.8)
[2024-07-14 20:41] LABS: ALT 54 U/L (16-63); AST 30 U/L (15-37); Albumin 3.9 g/dL (3.4-5.0); Alkaline Phosphatase 130 U/L (46-116); Bilirubin, Direct 0.2 mg/dL (0.0-0.2); Bilirubin, Total 0.9 mg/dL (0.2-1.0)
[2024-07-15 20:15] LABS: Hepatitis A Antibody IgM Negative (Negative); Hepatitis B Core Antibody Negative (Negative); Hepatitis B surface Ag Negative (Negative); Hepatitis C Ab w Rflx HCV PCR Negative (Negative)
== END 2024-07-14 15:15 | disposition home or self-care (01) ==
LOC: NCHCN 15:14
PROVIDERS: PCP Physician Assistant Medical; Visit Provider Physician Assistant Medical
DX: R79.89 Other specified abnormal findings of blood chemistry (principal)
CPT/HCPCS: 80076; 86704; 86709; 86803; 87340; 85025

== ENCOUNTER 2024-07-20 07:35 | Outpatient (CLI) | payer OTHER, SELFPAY ==
--- NOTE | 2024-07-20 06:00 | DI.RAD_ITS ---
Exam(s) XR PAIN CLINIC LUMBAR SP 2V EXAM: XR PAIN CLINIC LUMBAR SP 2V CLINICAL HISTORY: Dx: Lumbar Radiculopathy TECHNIQUE: 2D and realtime digital imaging was performed. Radiologist not present. CONTRAST MATERIAL: None. COMPARISON: No exams were available for comparison FINDINGS: Fluoroscopy was provided for pain management therapy. Transforaminal epidural steroid injection Please refer to procedure report or details. Radiation Exposure Index: Ka,r=62.97 mGy IMPRESSION: As above. RADIATION DOSE DELIVERED:
[2024-07-20 07:45] VITALS: BP 148/102; PULSE 83; RESP 20; TEMP 36.2; O2SAT 96
--- NOTE | 2024-07-20 08:33 | PDOC.PAIN ---
Date of service: 07/20/24 Time of Service: 09:02 Pain Managment Procedure Note Procedure Note Procedure Note: Lumbar Transforaminal Epidural Steroid Injection ? Location: LEFT L5-S1 ? Pre-procedure Diagnosis: M54.17-Radiculopathy, lumbosacral region M54.16 Radiculopathy, lumbar region ? Post-procedure Diagnosis:? The same as above ? Sedation:? none ? Estimated blood loss:? less than 2 cc ? Surgeon:? John Cazares MD COMMENT: Patient had some left foraminal stenosis at L5- S1 with as well as pain radiating to his left lower extremity ? Procedure Detail:?? The procedure and potential risks were explained to the patient and informed written consent was obtained. The patient was escorted to the procedure room and placed in the prone position. Pillows were utilized for proper positioning and comfort. Time out was performed in the procedure room with nursing staff confirming the patient's identity, procedure to be performed, allergies, and any blood thinning or anti-platelet medications. The patient's lower back was prepped with ChloraPrep and draped in a sterile fashion. Sterile gloves were used, a face mask was worn, and new single dose vials of all medications were used with the top being swabbed with alcohol and given time to dry prior to withdrawal of medication. A LEFT-sided oblique fluoroscopic view was obtained, with visualization of [level]. Lidocaine 1% was used to anesthetize the skin. The tip of a 7 22-gauge, Quincke needle was advanced toward the 6 o'clock position of the superior pedicle at the target level.? It was advanced just under the pedicle to the neural foramen L5-S1. Correct needle placement was confirmed through review of the fluoroscopy. Next, following negative aspiration, 1cc's of Omnipaque 240 contrast was injected under live fluoroscopy which showed good flow throughout the epidural space and no evidence of vascular flow or flow into adjacent compartments. Next, following negative aspiration, 40mg Depo-Medrol and 0.5ml of 0.5% bupivacaine was injected. The needle was gently removed.? ? The patient tolerated the procedure well.? Permanent images saved and recorded. Plan:? Follow up prn PAIN: PRE PROCEDURE 05/24 POST PROCEDURE 03/26 COMMENT: REPEAT PRN- CONSIDER INTRALAMINAR L4-5 WITH CATH LEFT Coding Conscious Sedation used for procedure: No CPT Codes: Transforaminal Lumbar/Sacral (includes fluoro) - 93054 ([id number] ~G) Additional Codes: Date of Service (90882) Date of service: 07/20/24
[2024-07-20 08:36] VITALS: PULSE 86; O2SAT 95
[2024-07-20 08:40] VITALS: PULSE 84; O2SAT 95
[2024-07-20 08:50] VITALS: PULSE 82; O2SAT 96
[2024-07-20] MEDS: Omnipaque 240 MG/ML 50 ML BTL IJ (09:04)
[2024-07-20] MEDS: methylPREDNISolone ACETATE 40 MG/ML VIAL IJ (09:04)
[2024-07-20] MEDS: Bupivacaine 0.5% Pres-Free 10 ML VIAL IJ (09:04)
[2024-07-20] MEDS: Nerve Block Tray 1 EACH MC (09:04)
== END 2024-07-20 07:36 | disposition home or self-care (01) ==
LOC: PC 07:36
PROVIDERS: PCP Physician Assistant Medical; Visit Provider Anesthesiology Pain Medicine
DX: M54.17 Radiculopathy, lumbosacral region (principal); M54.16 Radiculopathy, lumbar region
CPT/HCPCS: 64483; 72100; J0665; J1010; Q9967

== ENCOUNTER 2024-11-22 16:52 | Outpatient (REF) | payer OTHER, SELFPAY ==
[2024-11-22 16:57] LABS: Anion Gap 6.7 mmol/L (3-11); BUN 11 mg/dL (7-18); CO2 25.3 mmol/L (21.0-32.0); Calcium 8.7 mg/dL (8.5-10.1); Chloride 108 mmol/L (98-107); Estimated GFR 83.84 (mL/min/1.73m2); Glucose 114 mg/dL (74-106); Potassium 4.1 mmol/L (3.5-5.1); Sodium 140 mmol/L (136-145)
== END 2024-11-22 16:53 | disposition home or self-care (01) ==
LOC: NCHCN 16:52
PROVIDERS: PCP Physician Assistant Medical; Visit Provider Physician Assistant Medical
DX: R60.0 Localized edema (principal)
CPT/HCPCS: 80048